=== PATIENT | female | born 1995 | race African-American/Black ===

== ENCOUNTER 2016-12-27 23:09 | Emergency (ER) | payer OTHER ==
[~2016-12-27] VITALS: Ht 167.6 cm; Wt 78.0 kg
[~2016-12-27 23:09] MED LIST: HUMALOG SQ; LEVEMIR SQ; METF500T PO; PROC25SU22 RECTAL
[2016-12-27 23:11] VITALS: BP 130/76; PULSE 73; RESP 16; TEMP 98.1; O2SAT 98
[2016-12-27] MEDS ORDERED: NAPROXEN 250 MG TAB PO ONE (23:45)
--- NOTE | 2016-12-27 23:45 | PD ---
HPI Chief Complaint: Chest Pain Time Seen by Provider: 23:31 Travel History International Travel<30 days: No Contact w/Intl Traveler<30days: No Traveled to known affect area: No History of Present Illness HPI 21yo F with PMH of DM presents to the ED with c/o right sided chest pain since last night. Pain is more to the right of the sternum and sharp. Intermittent and nonradiating. Worst when you press on it. Denies any fever, sob, cough, n/ v, abdominal pain, focal weakness or numbness. Pt was here for atypical chest pain in 2014. Denies any history of PE, hormonal use, family history of sudden cardiac , smoking cig or cocaine use. PFSH Past Medical History ADD: Yes (PLUS PDD (PERVASIVE DEVOLOPMENT DISORDER)) ADHD: Yes Blood Disorders: No Cancer: No Cardiovascular Problems: No Diabetes: Yes Diminished Hearing: No Endocrine: No Genitourinary: No Immune Disorder: No Musculoskeletal: No Neurologic: Yes (PERVASIVE DEVELOPMENTAL DELAY, AUTISTIC) Psychiatric: No Reproductive: No Respiratory: No Thyroid Disease: No : 0 Social History Alcohol Use: No Tobacco Use: No Substance Use: No Allergies-Medications (Allergen,Severity, Reaction): Coded Allergies: Motrin (Verified Allergy, Severe, HIVES AND 'SUFFOCATION', 07/05/16) Lactulose (Verified Allergy, Unknown, "LACTOSE INTOLERANCE", 07/05/16) Reported Meds & Prescriptions Reported Meds & Active Scripts Active Naproxen 250 Mg Tab 250 Mg PO BID 5 Days Prochlorperazine Supp (Prochlorperazine) 25 Mg Supp 25 Mg RECTAL Q6H PRN Reported Levemir Inj (Insulin Detemir) 1,000 unit/ 10 ML Vial 10 Units SQ HS Do not mix with any other Insulin. Metformin (Metformin HCl) 500 Mg Tab 500 Mg PO DAILY With a meal Humalog Inj (Insulin Human Lispro) 1,000 Unit/10 Ml Vial 2-12 Units SQ ACHS Max dose at bedtime:( )units; sugars < 70,(0)units; sugars 150-199,(2)units; sugars 200-249,(4)units; sugars 250-299,(7)units; sugars 300-349,(10)units; sugars more than 349,(12)units. Review of Systems Except as stated in HPI: all other systems reviewed are Neg Physical Exam Narrative GEN: 21yo F not in distress. SKIN: Warm and dry. HEAD: Normocephalic, atraumatic. CV: S1, S2 Chest wall: +TTP right of sternum. No rash. LUNGS: CTA b/l, equal breath sounds. ABD: soft, NT/ND EXT: No lower ext edema. Data Data Last Documented VS Vital Signs Date Time Temp Pulse Resp B/P Pulse Ox O2 Delivery O2 Flow Rate FiO2 12/27/16 23:11 98.1 73 16 130/76 98 Room Air Orders Electrocardiogram (12/27/16 23:39) Basic Metabolic Panel (Bmp) (12/27/16 23:39) Ckmb (Isoenzyme) Profile (12/27/16 23:39) Complete Blood Count With Diff (12/27/16 23:39) Magnesium (Mg) (12/27/16 23:39) Prothrombin Time / Inr (Pt) (12/27/16 23:39) Act Partial Throm Time (Ptt) (12/27/16 23:39) Troponin I (12/27/16 23:39) Chest, Single Ap (12/27/16 23:39) Ecg Monitoring (12/27/16 23:39) Oximetry (12/27/16 23:39) Naproxen (Naprosyn) (12/27/16 23:45) CKMB (12/27/16 00:15) CKMB% (12/27/16 00:15) Labs Laboratory Tests Test 12/27/16 00:15 White Blood Count 7.1 TH/MM3 Red Blood Count 3.91 MIL/MM3 Hemoglobin 10.8 GM/DL Hematocrit 33.3 % Mean Corpuscular Volume 85.4 FL Mean Corpuscular Hemoglobin 27.7 PG Mean Corpuscular Hemoglobin 32.4 % Concent Red Cell Distribution Width 14.9 % Platelet Count 242 TH/MM3 Mean Platelet Volume 8.4 FL Neutrophils (%) (Auto) 47.5 % Lymphocytes (%) (Auto) 42.5 % Monocytes (%) (Auto) 7.9 % Eosinophils (%) (Auto) 1.7 % Basophils (%) (Auto) 0.4 % Neutrophils # (Auto) 3.4 TH/MM3 Lymphocytes # (Auto) 3.0 TH/MM3 Monocytes # (Auto) 0.6 TH/MM3 Eosinophils # (Auto) 0.1 TH/MM3 Basophils # (Auto) 0.0 TH/MM3 CBC Comment DIFF FINAL Differential Comment Prothrombin Time 10.2 SEC Prothromb Time International 0.9 RATIO Ratio Activated Partial 28.5 SEC Thromboplast Time Sodium Level 141 MEQ/L Potassium Level 3.8 MEQ/L Chloride Level 105 MEQ/L Carbon Dioxide Level 29.4 MEQ/L Anion Gap 7 MEQ/L Blood Urea Nitrogen 17 MG/DL Creatinine 0.74 MG/DL Estimat Glomerular Filtration 118 ML/MIN Rate Random Glucose 97 MG/DL Calcium Level 8.5 MG/DL Magnesium Level 1.7 MG/DL Total Creatine Kinase 201 U/L Creatine Kinase MB 1.9 NG/ML Creatine Kinase MB % 0.9 % Troponin I 0.02 NG/ML MDM Medical Decision Making Medical Screen Exam Complete: Yes Emergency Medical Condition: Yes Interpretation(s) EKG: Sinus bradycardia at 57bpm. Normal axis. No ST segment elevation or depression. Differential Diagnosis Costochondritis vs. musculoskeletal pain vs. GERD vs. ACS vs. pericarditis vs. Pneumonia vs. PTX Narrative Course 21yo F with very atypical right sided chest pain that is reproducible to touch. However, pt is obese and has diabetes so will do cardiac work up and obtain labs, EKG, and CXR. Pt has taken naprosyn before and states that even though she is allergic to motrin, she can take naprosyn. Pt was given acetaminophen by mother but did not help with pain. Will give naprosyn and reevaluate. Labs reviewed, no leukocytosis. H/H is low at 10.8/33.3 which is slightly lower than her baseline. Denies any blood in stool or bleeding. Troponin negative. CXR negative. Pt reevaluated at bedside after naprosyn and states pain has improved. Do not feel chest pain is cardiac. Pt instructed to follow up with PMD. Return precautions given. Diagnosis Primary Impression: Atypical chest pain Patient Instructions: General Instructions Departure Forms: Tests/Procedures Additional Instructions: Please follow up with your PMD in 1-2 days. Hemoglobin is 10.8. Please follow up with primary care physician for anemia work up. Return to the ED if symptoms worsen. Med/Other Pt SpecificInfo: Prescription(s) given Scripts Naproxen 250 Mg Wal174 Mg PO BID 5 Days Ref 0 Prov:Coby Galeana DO 12/28/16 Disposition: 01 DISCHARGE HOME Condition: Stable Coby Galeana DO Dec 27, 2016 23:45
--- NOTE | 2016-12-28 00:01 | RADRPT ---
EXAM DATE/TIME: 12/27/2016 23:36 [facility] COMPARISON: CHEST PA & LAT, March 17, 2015, 22:07. INDICATIONS : Pt having chest pain with nausea x 1 day. MEDICAL HISTORY : Diabetes mellitus type II. SURGICAL HISTORY : None. ENCOUNTER: Initial ACUITY: 1 day PAIN SCORE: 6/10 LOCATION: Bilateral chest FINDINGS: The lungs are clear without infiltrate, nodule, or mass. There is no appreciable pleural effusion fo r technique. Heart and mediastinum are unremarkable. CONCLUSION: No acute cardiopulmonary disease. Eleni Lima MD on December 27, 2016 at 23:59 Board Certified Radiologist. This report was verified electronically.
[2016-12-28 00:38] LABS: AUTOMATED NEUTROPHIL # 3.4 TH/MM3 (1.8-7.7); BASOPHIL % 0.4 % (0.0-2.0); EOSINOPHIL # 0.1 TH/MM3 (0-0.4); EOSINOPHIL % 1.7 % (0.0-4.0); HEMATOCRIT 33.3 % (35.0-46.0); HEMO FLAGS DIFF FINAL; LYMPH % 42.5 % (9.0-44.0); MEAN CELL VOLUME 85.4 FL (80.0-100.0); MEAN CORPUSCULAR HEMOGLOBIN 27.7 PG (27.0-34.0); MEAN CORPUSCULAR HGB CONC 32.4 % (32.0-36.0); MONO % 7.9 % (0.0-8.0); NEUT % 47.5 % (16.0-70.0); PLATELET COUNT 242 TH/MM3 (150-450); RED BLOOD COUNT 3.91 MIL/MM3 (4.00-5.30); RED CELL DISTRIBUTION WIDTH 14.9 % (11.6-17.2); WHITE BLOOD COUNT 7.1 TH/MM3 (4.0-11.0)
[2016-12-28 00:51] LABS: APTT (PATIENT) 28.5 SEC (24.3-30.1); INTERNATIONAL NORMALIZED RATIO 0.9 RATIO; PROTHROMBIN TIME - PATIENT 10.2 SEC (9.8-11.6)
[2016-12-28] MEDS ORDERED: NAPR250T PO (00:52)
[2016-12-28 00:57] LABS: BICARBONATE 29.4 MEQ/L (21.0-32.0); MAGNESIUM 1.7 MG/DL (1.5-2.5); POTASSIUM 3.8 MEQ/L (3.5-5.1)
[2016-12-28 01:14] LABS: CKMB 1.9 NG/ML (0.5-3.6)
--- NOTE | 2016-12-28 13:48 | EKG ---
Date Performed: 12/27/2016 Time Performed: 23:55:27 PTAGE: 21 years EKG: SINUS BRADYCARDIA Compared to prior tracing no significant change BORDERLINE ECG PREVIOUS TRACING : 03/17/2015 22.14 DOCTOR: Corky Torres Interpretating Date/Time 12/28/2016 13:48:04
== END 2016-12-28 01:38 | disposition home or self-care (01) ==
LOC: NEPD 23:09
DX: R07.89 Other chest pain (principal); E11.9 Type 2 diabetes mellitus without complications; R94.31 Abnormal electrocardiogram [ECG] [EKG]
CPT/HCPCS: 71010; 80048; 82550; 82552; 83735; 84484; 85025; 85610; 85730; 93005

== ENCOUNTER 2017-01-21 14:15 | Emergency (ER) | payer OTHER ==
[~2017-01-21] VITALS: Ht 170.2 cm; Wt 70.0 kg
[~2017-01-21 14:15] MED LIST changes: +NAPR250T PO
[2017-01-21 14:17] VITALS: BP 139/97; PULSE 92; RESP 15; TEMP 98.3; O2SAT 98
--- NOTE | 2017-01-21 14:21 | PD ---
Physical Exam Date Seen by Provider: Jan 21, 2017 Time Seen by Provider: 14:18 MDM Supervised Visit with LEONOR: No Narrative Course 21 YO F with complaint of CP, SOB, N/V. Hx DM Vitals reviewed. Patient seen in triage, awaiting bed placement. Breonna Perez Jan 21, 2017 14:21
[2017-01-21] MEDS ORDERED: SODIUM CHLOR 0.9% 1000 ML INJ 1,000 ML IV SCH (16:27)
[2017-01-21] MEDS ORDERED: ONDANSETRON HCL 4 MG/2 ML VIAL IVP ONE (16:30)
[2017-01-21] MEDS ORDERED: PANTOPRAZOLE SODIUM 40 MG VIAL IVP ONE (16:30)
--- NOTE | 2017-01-21 16:32 | PD ---
HPI Chief Complaint: Respiratory Distress Time Seen by Provider: 16:20 Travel History International Travel<30 days: No Contact w/Intl Traveler<30days: No Traveled to known affect area: No History of Present Illness HPI 21-year-old female presents for evaluation of nausea, vomiting, chest pain. She reports that for lunch she ate a TV dinner as well as a hot pocket. She started to vomit shortly afterwards. She reports a burning sensation in the lower chest which is reproduced with vomiting. She reports some mild associated shortness of breath. Denies any abdominal pain, diarrhea, leg swelling, recent travel or surgery, history of DVT or PE. She has a history of diabetes for which she takes metformin, insulin. Last menstrual period 9 days ago. No other complaints. PFSH Past Medical History ADD: Yes (PLUS PDD (PERVASIVE DEVOLOPMENT DISORDER)) ADHD: Yes Blood Disorders: No Cancer: No Cardiovascular Problems: No Diabetes: Yes Diminished Hearing: No Endocrine: No Genitourinary: No Immune Disorder: No Musculoskeletal: No Neurologic: Yes (PERVASIVE DEVELOPMENTAL DELAY, AUTISTIC) Psychiatric: No Reproductive: No Respiratory: No Thyroid Disease: No ?: Unknown : 0 Social History Alcohol Use: No Tobacco Use: No Substance Use: No Allergies-Medications (Allergen,Severity, Reaction): Coded Allergies: Motrin (Verified Allergy, Severe, HIVES AND 'SUFFOCATION', 07/05/16) Lactulose (Verified Allergy, Unknown, "LACTOSE INTOLERANCE", 07/05/16) Reported Meds & Prescriptions Reported Meds & Active Scripts Active Zofran (Ondansetron HCl) 4 Mg Tab 4 Mg PO Q6HR PRN Naproxen 250 Mg Tab 250 Mg PO BID 5 Days Prochlorperazine Supp (Prochlorperazine) 25 Mg Supp 25 Mg RECTAL Q6H PRN Reported Levemir Inj (Insulin Detemir) 1,000 unit/ 10 ML Vial 10 Units SQ HS Do not mix with any other Insulin. Metformin (Metformin HCl) 500 Mg Tab 500 Mg PO DAILY With a meal Humalog Inj (Insulin Human Lispro) 1,000 Unit/10 Ml Vial 2-12 Units SQ ACHS Max dose at bedtime:( )units; sugars < 70,(0)units; sugars 150-199,(2)units; sugars 200-249,(4)units; sugars 250-299,(7)units; sugars 300-349,(10)units; sugars more than 349,(12)units. Review of Systems Except as stated in HPI: all other systems reviewed are Neg Physical Exam Narrative GENERAL: Well-developed well-nourished female who is in no acute distress. SKIN: Warm and dry. HEAD: Atraumatic. Normocephalic. EYES: Pupils equal and round. No scleral icterus. No injection or drainage. ENT: No nasal bleeding or discharge. Mucous membranes pink and moist. NECK: Trachea midline. No JVD. CARDIOVASCULAR: Regular rate and rhythm. No murmur appreciated. RESPIRATORY: No accessory muscle use. Clear to auscultation. Breath sounds equal bilaterally. GASTROINTESTINAL: Abdomen soft, non-tender, nondistended. Hepatic and splenic margins not palpable. MUSCULOSKELETAL: No obvious deformities. No clubbing. No cyanosis. No edema. NEUROLOGICAL: Awake and alert. No obvious cranial nerve deficits. Motor grossly within normal limits. Normal speech. PSYCHIATRIC: Appropriate mood and affect; insight and judgment normal. Data Data Last Documented VS Vital Signs Date Time Temp Pulse Resp B/P Pulse Ox O2 Delivery O2 Flow Rate FiO2 01/21/17 14:17 98.3 92 15 139/97 98 Orders Complete Blood Count With Diff (01/21/17 16:27) Comprehensive Metabolic Panel (01/21/17 16:27) Iv Access Insert/Monitor (01/21/17 16:27) Ondansetron Inj (Zofran Inj) (01/21/17 16:30) Pantoprazole Inj (Protonix Inj) (01/21/17 16:30) Sodium Chlor 0.9% 1000 Ml Inj (Ns 1000 M (01/21/17 16:27) Electrocardiogram (01/21/17 16:27) Ed Urine Pregnancytest Poc (01/21/17 16:27) Chest, Single Ap (01/21/17 ) Potassium Chloride (Kcl) (01/21/17 17:15) Labs Laboratory Tests Test 01/21/17 14:30 White Blood Count 5.7 TH/MM3 Red Blood Count 4.28 MIL/MM3 Hemoglobin 12.2 GM/DL Hematocrit 35.9 % Mean Corpuscular Volume 84.0 FL Mean Corpuscular Hemoglobin 28.5 PG Mean Corpuscular Hemoglobin 33.9 % Concent Red Cell Distribution Width 14.4 % Platelet Count 272 TH/MM3 Mean Platelet Volume 8.3 FL Neutrophils (%) (Auto) 41.1 % Lymphocytes (%) (Auto) 50.2 % Monocytes (%) (Auto) 6.9 % Eosinophils (%) (Auto) 1.4 % Basophils (%) (Auto) 0.4 % Neutrophils # (Auto) 2.4 TH/MM3 Lymphocytes # (Auto) 2.9 TH/MM3 Monocytes # (Auto) 0.4 TH/MM3 Eosinophils # (Auto) 0.1 TH/MM3 Basophils # (Auto) 0.0 TH/MM3 CBC Comment DIFF FINAL Differential Comment Sodium Level 139 MEQ/L Potassium Level 3.4 MEQ/L Chloride Level 102 MEQ/L Carbon Dioxide Level 30.4 MEQ/L Anion Gap 7 MEQ/L Blood Urea Nitrogen 10 MG/DL Creatinine 0.82 MG/DL Estimat Glomerular Filtration 105 ML/MIN Rate Random Glucose 76 MG/DL Calcium Level 9.1 MG/DL Total Bilirubin 0.2 MG/DL Aspartate Amino Transf 25 U/L (AST/SGOT) Alanine Aminotransferase 18 U/L (ALT/SGPT) Alkaline Phosphatase 85 U/L Total Protein 8.1 GM/DL Albumin 4.0 GM/DL [facility] Medical Decision Making Medical Screen Exam Complete: Yes Emergency Medical Condition: Yes Medical Record Reviewed: Yes Differential Diagnosis Gastritis, gastroenteritis, DKA, dehydration, electrolyte abnormality, GERD, PE , ACS Narrative Course 21-year-old female who developed some vomiting as well as a burning sensation in her chest when she vomits. Symptoms started shortly after she ate a TV dinner and hot pocket for lunch. On examination she has some reproducible tenderness to palpation in the center of her chest. Her abdomen is soft and nontender. She appears well. Per chart review she has been seen here in the past for atypical chest pain symptoms was recently on December 27 in which she had a negative workup. I suspect her burning chest pain is secondary to vomiting. Ice for basic lab work, EKG, chest x-ray. She'll be given Zofran and fluids and Protonix. The patient's lab work imaging studies have been reviewed. Potassium slightly low at 3.4, otherwise her laboratory and imaging studies are unremarkable. She was given a dose of potassium chloride. She is stable for discharge. Diagnosis Primary Impression: Nausea and vomiting Qualified Code: R11.2 - Non-intractable vomiting with nausea, unspecified vomiting type Additional Instructions: Zofran for nausea. Slowly advance diet as tolerated. Return for any emergent medical conditions. Med/Other Pt SpecificInfo: Prescription(s) given Scripts Ondansetron (Zofran)4 Mg Tab4 Mg PO Q6HR PRN (NAUSEA OR VOMITING) #15 TAB Ref 0 Prov:Kimberly Duran MD 01/21/17 Disposition: 01 DISCHARGE HOME Condition: Stable Olu Salgado Jan 21, 2017 16:32
--- NOTE | 2017-01-21 16:43 | RADRPT ---
EXAM DATE/TIME: 01/21/2017 16:26 [facility] COMPARISON: CHEST SINGLE AP, December 27, 2016, 23:36. INDICATIONS : Chest pain. MEDICAL HISTORY : None. SURGICAL HISTORY : None. ENCOUNTER: Initial ACUITY: 1 week PAIN SCORE: 10/10 LOCATION: middle chest. FINDINGS: A single view of the chest demonstrates the lungs to be symmetrically aerated without evidence of mas s, infiltrate or effusion. The cardiomediastinal contours are unremarkable. Osseous structures are intact. CONCLUSION: 1. No acute cardiopulmonary disease. Javier George MD on January 21, 2017 at 16:40 Board Certified Radiologist. This report was verified electronically.
[2017-01-21 16:48] LABS: AUTOMATED NEUTROPHIL # 2.4 TH/MM3 (1.8-7.7); BASOPHIL % 0.4 % (0.0-2.0); EOSINOPHIL # 0.1 TH/MM3 (0-0.4); EOSINOPHIL % 1.4 % (0.0-4.0); HEMATOCRIT 35.9 % (35.0-46.0); HEMO FLAGS DIFF FINAL; LYMPH % 50.2 % (9.0-44.0); LYMPHOCYTE # 2.9 TH/MM3 (1.0-4.8); MEAN CORPUSCULAR HEMOGLOBIN 28.5 PG (27.0-34.0); MEAN CORPUSCULAR HGB CONC 33.9 % (32.0-36.0); MONO % 6.9 % (0.0-8.0); NEUT % 41.1 % (16.0-70.0); PLATELET COUNT 272 TH/MM3 (150-450); RED BLOOD COUNT 4.28 MIL/MM3 (4.00-5.30); RED CELL DISTRIBUTION WIDTH 14.4 % (11.6-17.2); WHITE BLOOD COUNT 5.7 TH/MM3 (4.0-11.0)
[2017-01-21 17:07] LABS: ALT (GPT) 18 U/L (10-53); ANION GAP 7 MEQ/L (5-15); AST (GOT) 25 U/L (15-37); BICARBONATE 30.4 MEQ/L (21.0-32.0); BLOOD UREA NITROGEN 10 MG/DL (7-18); CHLORIDE 102 MEQ/L (98-107); GLOMERULAR FILTRATION RATE 105 ML/MIN (>89); POTASSIUM 3.4 MEQ/L (3.5-5.1); SODIUM (NA) 139 MEQ/L (136-145)
[2017-01-21 17:09] LABS: ALKALINE PHOSPHATASE 85 U/L (45-117); TOTAL BILIRUBIN ADULT 0.2 MG/DL (0.2-1.0)
[2017-01-21] MEDS ORDERED: ZOFR4TAB PO (17:14)
[2017-01-21] MEDS ORDERED: POTASSIUM CHLORIDE 20 MEQ CONTROLLED RELEASE TAB PO ONE (17:15)
--- NOTE | 2017-01-22 23:33 | EKG ---
Date Performed: 01/21/2017 Time Performed: 16:49:09 PTAGE: 21 years EKG: SINUS BRADYCARDIA WITH SINUS ARRHYTHMIA BORDERLINE ECG PREVIOUS TRACING : 12/27/2016 23.55 Compared to prior tracing no significant change DOCTOR: Merritt Byers Interpretating Date/Time 01/22/2017 23:31:47
== END 2017-01-21 18:57 | disposition home or self-care (01) ==
LOC: NEPD 14:15
DX: R11.2 Nausea with vomiting, unspecified (principal); R94.31 Abnormal electrocardiogram [ECG] [EKG]; E11.9 Type 2 diabetes mellitus without complications; Z79.4 Long term (current) use of insulin
CPT/HCPCS: 71010; 80053; 84703; 85025; 93005; 96361; 96374; 96375; 99285; C9113; J2405; J7030

== ENCOUNTER 2017-01-28 23:35 | Emergency (ER) | payer OTHER ==
[~2017-01-28] VITALS: Ht 170.2 cm; Wt 70.0 kg
[~2017-01-28 23:35] MED LIST changes: +ZOFR4TAB PO
[2017-01-28 23:38] VITALS: BP 116/79; PULSE 81; RESP 18; TEMP 98.8; O2SAT 100
[2017-01-29] MEDS ORDERED: TRAM50TA PO (00:17)
[2017-01-29 00:20] VITALS: BP 119/70; PULSE 79; O2SAT 99
--- NOTE | 2017-01-29 00:39 | PD ---
HPI Chief Complaint: Abdominal Pain Time Seen by Provider: 00:39 Travel History International Travel<30 days: No Contact w/Intl Traveler<30days: No Traveled to known affect area: No History of Present Illness HPI 21-year-old female with history of developmental delay, autistic spectrum disorder, diabetes, presents to emergency department for evaluation of nausea and vomiting. Patient was seen and evaluated here on January 21 for similar complaint. Lab work at that time was without acute concern. Mom states that the patient's blood glucose has been normal. She has been taking her antiemetics but states it has not helped. She has had for 5 episodes of nausea followed by vomiting. Mom states this started on 2 PM today. Patient has been afebrile. She does report abdominal pain. No bowel changes. No urinary symptoms. Patient has been without any fever. No chest pain or tightness. No difficulty breathing. No other symptoms to report. PFSH Past Medical History ADD: Yes (PLUS PDD (PERVASIVE DEVOLOPMENT DISORDER)) ADHD: Yes Blood Disorders: No Cancer: No Cardiovascular Problems: No Diabetes: Yes Patient Takes Glucophage: Yes Diminished Hearing: No Endocrine: No Genitourinary: No Immune Disorder: No Implanted Vascular Access Dvce: No Musculoskeletal: No Neurologic: Yes (PERVASIVE DEVELOPMENTAL DELAY, AUTISTIC) Psychiatric: No Reproductive: No Respiratory: No Thyroid Disease: No Tetanus Vaccination: > 5 Years Influenza Vaccination: Yes ?: Unknown LMP: 01/15/17 : 0 Past Surgical History Other Surgery: No Social History Alcohol Use: Yes (OCC) Tobacco Use: No Substance Use: No Allergies-Medications (Allergen,Severity, Reaction): Coded Allergies: Motrin (Verified Allergy, Severe, HIVES AND 'SUFFOCATION', 07/05/16) Lactulose (Verified Allergy, Unknown, "LACTOSE INTOLERANCE", 07/05/16) Reported Meds & Prescriptions Reported Meds & Active Scripts Active Reported Tramadol (Tramadol HCl) 50 Mg Tab 50 Mg PO Q12HR PRN Metformin (Metformin HCl) 500 Mg Tab 500 Mg PO BID With a meal Humalog Inj (Insulin Human Lispro) 1,000 Unit/10 Ml Vial 2-12 Units SQ ACHS Max dose at bedtime:( )units; sugars < 70,(0)units; sugars 150-199,(2)units; sugars 200-249,(4)units; sugars 250-299,(7)units; sugars 300-349,(10)units; sugars more than 349,(12)units. Review of Systems Except as stated in HPI: all other systems reviewed are Neg Physical Exam Narrative GENERAL: Well-nourished female patient, in no acute distress SKIN: Focused skin assessment warm/dry. HEAD: Atraumatic. Normocephalic. EYES: Pupils equal and round. No scleral icterus. No injection or drainage. ENT: No nasal bleeding or discharge. Mucous membranes pink and moist. NECK: Trachea midline. No JVD. CARDIOVASCULAR: Regular rate and rhythm. No murmur appreciated. RESPIRATORY: No accessory muscle use. Clear to auscultation. Breath sounds equal bilaterally. GASTROINTESTINAL: Abdomen soft, nondistended. Right upper quadrant tenderness to palpation. No rebound tenderness. No guarding. MUSCULOSKELETAL: No obvious deformities. No clubbing. No cyanosis. No edema. NEUROLOGICAL: Awake and alert. No obvious cranial nerve deficits. Motor grossly within normal limits. Normal speech. Data Data Last Documented VS Vital Signs Date Time Temp Pulse Resp B/P Pulse Ox O2 Delivery O2 Flow Rate FiO2 01/29/17 00:20 79 119/70 99 Room Air 01/28/17 23:38 98.8 18 Orders Complete Blood Count With Diff (01/29/17 00:32) Comprehensive Metabolic Panel (01/29/17 00:32) Lipase (01/29/17 00:32) Urinalysis - C+S If Indicated (01/29/17 00:32) Us Abdomen Gallbladder (01/29/17 ) Iv Access Insert/Monitor (01/29/17 00:32) Ecg Monitoring (01/29/17 00:32) Oximetry (01/29/17 00:32) Sodium Chloride 0.9% Flush (Ns Flush) (01/29/17 00:45) Ed Urine Pregnancytest Poc (01/29/17 00:32) MDM Medical Decision Making Medical Screen Exam Complete: Yes Emergency Medical Condition: Yes Medical Record Reviewed: Yes Differential Diagnosis Gastritis versus gastroparesis versus gastroenteritis versus pancreatitis versus cholecystitis versus cholelithiasis versus electrolyte abnormality Narrative Course 21-year-old female presents to emergency department for evaluation of nausea and vomiting. Patient appears without distress. She does have right upper quadrant tenderness to palpation. Vital signs are otherwise stable. Lab work and right upper quadrant ultrasound are ordered. 0100 patient is signed out to my attending physician Dr. Lao. She will assume care at this time. Disposition will pend her judgment. Condition: Stable Shannon Sommer Jan 29, 2017 00:39
[2017-01-29 00:41] VITALS: O2SAT 99
[2017-01-29] MEDS ORDERED: ONDANSETRON HCL 4 MG/2 ML VIAL IV PUSH ONE (00:45)
[2017-01-29] MEDS ORDERED: SODIUM CHLORIDE 0.9% FLUSH 10 ML FLUSH IV FLUSH PRN (00:45)
[2017-01-29] MEDS ORDERED: SODIUM CHLOR 0.9% 1000 ML INJ 1,000 ML IV ONE (00:45)
[2017-01-29 00:54] LABS: AUTOMATED NEUTROPHIL # 2.5 TH/MM3 (1.8-7.7); BASOPHIL % 0.3 % (0.0-2.0); EOSINOPHIL # 0.1 TH/MM3 (0-0.4); EOSINOPHIL % 1.6 % (0.0-4.0); HEMATOCRIT 33.4 % (35.0-46.0); HEMO FLAGS DIFF FINAL; LYMPH % 51.2 % (9.0-44.0); LYMPHOCYTE # 3.2 TH/MM3 (1.0-4.8); MEAN CELL VOLUME 83.7 FL (80.0-100.0); MEAN CORPUSCULAR HEMOGLOBIN 28.1 PG (27.0-34.0); MEAN CORPUSCULAR HGB CONC 33.6 % (32.0-36.0); MONO % 6.2 % (0.0-8.0); NEUT % 40.7 % (16.0-70.0); PLATELET COUNT 257 TH/MM3 (150-450); RED BLOOD COUNT 3.99 MIL/MM3 (4.00-5.30); RED CELL DISTRIBUTION WIDTH 14.7 % (11.6-17.2); WHITE BLOOD COUNT 6.2 TH/MM3 (4.0-11.0)
--- NOTE | 2017-01-29 01:01 | PD ---
Data Data Last Documented VS Vital Signs Date Time Temp Pulse Resp B/P Pulse Ox O2 Delivery O2 Flow Rate FiO2 01/29/17 00:41 99 Room Air 01/29/17 00:20 79 119/70 01/28/17 23:38 98.8 18 Orders Complete Blood Count With Diff (01/29/17 00:32) Comprehensive Metabolic Panel (01/29/17 00:32) Lipase (01/29/17 00:32) Urinalysis - C+S If Indicated (01/29/17 00:32) Us Abdomen Gallbladder (01/29/17 ) Iv Access Insert/Monitor (01/29/17 00:32) Ecg Monitoring (01/29/17 00:32) Oximetry (01/29/17 00:32) Sodium Chloride 0.9% Flush (Ns Flush) (01/29/17 00:45) Ed Urine Pregnancytest Poc (01/29/17 00:32) Ondansetron Inj (Zofran Inj) (01/29/17 00:45) Sodium Chlor 0.9% 1000 Ml Inj (Ns 1000 M (01/29/17 00:45) Urine Culture (01/29/17 01:52) Ceftriaxone Inj (Rocephin Inj) (01/29/17 03:30) Labs Laboratory Tests Test 01/29/17 01/29/17 00:39 01:52 White Blood Count 6.2 TH/MM3 Red Blood Count 3.99 MIL/MM3 Hemoglobin 11.2 GM/DL Hematocrit 33.4 % Mean Corpuscular Volume 83.7 FL Mean Corpuscular Hemoglobin 28.1 PG Mean Corpuscular Hemoglobin 33.6 % Concent Red Cell Distribution Width 14.7 % Platelet Count 257 TH/MM3 Mean Platelet Volume 8.8 FL Neutrophils (%) (Auto) 40.7 % Lymphocytes (%) (Auto) 51.2 % Monocytes (%) (Auto) 6.2 % Eosinophils (%) (Auto) 1.6 % Basophils (%) (Auto) 0.3 % Neutrophils # (Auto) 2.5 TH/MM3 Lymphocytes # (Auto) 3.2 TH/MM3 Monocytes # (Auto) 0.4 TH/MM3 Eosinophils # (Auto) 0.1 TH/MM3 Basophils # (Auto) 0.0 TH/MM3 CBC Comment DIFF FINAL Differential Comment Sodium Level 138 MEQ/L Potassium Level 3.9 MEQ/L Chloride Level 105 MEQ/L Carbon Dioxide Level 27.1 MEQ/L Anion Gap 6 MEQ/L Blood Urea Nitrogen 11 MG/DL Creatinine 0.83 MG/DL Estimat Glomerular Filtration 103 ML/MIN Rate Random Glucose 80 MG/DL Calcium Level 8.8 MG/DL Total Bilirubin 0.2 MG/DL Aspartate Amino Transf 40 U/L (AST/SGOT) Alanine Aminotransferase 21 U/L (ALT/SGPT) Alkaline Phosphatase 82 U/L Total Protein 7.5 GM/DL Albumin 3.6 GM/DL Lipase 162 U/L Urine Color YELLOW Urine Turbidity CLEAR Urine pH 6.0 Urine Specific [place] 1.022 Urine Protein TRACE mg/dL Urine Glucose (UA) NEG mg/dL Urine Ketones NEG mg/dL Urine Occult Blood NEG Urine Nitrite NEG Urine Bilirubin NEG Urine Urobilinogen 2.0 MG/DL Urine Leukocyte Esterase LARGE Urine RBC 9 /hpf Urine WBC 27 /hpf Urine Squamous Epithelial 2 /hpf Cells Urine Mucus FEW /lpf Microscopic Urinalysis Comment CULTURE INDICATED MDM Medical Record Reviewed: Yes Supervised Visit with LEONOR: No Interpretation(s) Last Impressions Gall Bladder Ultrasound 01/29/17 0000 Signed Impressions: Service Date/Time: Sunday, January 29, 2017 02:46 - CONCLUSION: 1. Enlarged echogenic liver which can be seen with moderate hepatic steatosis. 2. No evidence for cholelithiasis. Reggie Conde MD Narrative Course During the course of the patients emergency department visit, the patients history, examination, and differential diagnosis were reviewed with the patient. The patient had IV access obtained and blood work sent for analysis. The patient's case was checked out to me by Shannon, the nurse practitioner at the conclusion of her shift. An ultrasound of the gallbladder was ordered by Shannon. The patient was initially provided normal saline 1 L IV fluid bolus, Zofran 4 mg IV. The patients laboratory studies were reviewed and remarkable for a CBC that shows a white count of 2, hemoglobin 11.2, platelets 257 with 51.2 lymphocytes, CMP is remarkable for an AST of 40, lipase 162, urinalysis shows large leukocyte esterase, 9 rbc's, 27 WBCs, culture indicated. The patient was given Rocephin 1 g IV for a urinary tract infection. Radiology studies were reviewed and remarkable for an ultrasound of the gallbladder which shows an enlarged echogenic liver which can be seen with moderate hepatic steatosis, no evidence for cholelithiasis. The patient will be discharged home with Bactrim antibiotic for urinary tract infection, Zofran for nausea. She was instructed to follow-up with her primary care physician for reexamination in follow-up in the next 2 days. The patient is resting comfortably and feels better, is alert and in no distress. The patients results and examination findings were discussed with the patient. The repeat examination is unremarkable and benign. The history, exam, diagnostic testing, and current condition do not suggest any significant pathology to warrant further testing, continued ED treatment, admission, or surgical evaluation at this point. The vital signs have been stable. The patient does not have uncontrollable pain, intractable vomiting, or other significant symptoms. The patient's condition is stable and appropriate for discharge. The patient will pursue further outpatient evaluation with a primary care physician or other designated or consulting physician as indicated in the discharge instructions. The patient expressed understanding and was agreeable with this plan. Diagnosis Primary Impression: Abdominal pain Qualified Code: R10.13 - Epigastric pain Additional Impressions: Vomiting Qualified Code: R11.2 - Non-intractable vomiting with nausea, unspecified vomiting type UTI (urinary tract infection) Qualified Code: N39.0 - Urinary tract infection without hematuria, site unspecified Referrals: Primary Care Physician 2 days Patient Instructions: Abdominal Pain (ED), Acute Nausea and Vomiting (ED), General Instructions, Urinary Tract Infection in Women (ED) Med/Other Pt SpecificInfo: Prescription(s) given Scripts Ondansetron Odt (Zofran Odt)4 Mg Tab4 Mg SL Q6HR PRN (Nausea/Vomiting) #7 TAB Ref 0 Prov:Arlen Lao MD 01/29/17 Sulfamethoxazole-Trimethoprim (Bactrim DS)800-160 Mg Tab1 Tab PO BID #20 TAB Ref 0 Prov:Arlen Lao MD 01/29/17 Disposition: 01 DISCHARGE HOME Condition: Stable Arlen Lao MD Jan 29, 2017 01:00
[2017-01-29 01:04] LABS: ANION GAP 6 MEQ/L (5-15); AST (GOT) 40 U/L (15-37); BICARBONATE 27.1 MEQ/L (21.0-32.0); BLOOD UREA NITROGEN 11 MG/DL (7-18); CHLORIDE 105 MEQ/L (98-107); GLOMERULAR FILTRATION RATE 103 ML/MIN (>89); POTASSIUM 3.9 MEQ/L (3.5-5.1); SODIUM (NA) 138 MEQ/L (136-145)
[2017-01-29 01:07] LABS: ALKALINE PHOSPHATASE 82 U/L (45-117); ALT (GPT) 21 U/L (10-53); TOTAL BILIRUBIN ADULT 0.2 MG/DL (0.2-1.0)
[2017-01-29 02:27] LABS: BLOOD, URINE NEG (NEG); COMMENT (UR) CULTURE INDICATED; CULTURE IF INDICATED CULTURE INDICATED; GLUCOSE,URINE NEG (NEG); KETONE, URINE NEG (NEG); MUCUS URINE FEW /lpf (OCC); NITRITE,URINE NEG (NEG); SQUAMOUS EPITHELIAL CELL URINE 2 /hpf (0-5); URINE COLOR YELLOW (YELLW/STRAW)
[2017-01-29] MEDS ORDERED: ZOFR4TAB3 SL (03:25)
[2017-01-29] MEDS ORDERED: BACT800T5 PO (03:25)
[2017-01-29] MEDS ORDERED: cefTRIAXone INJ 2,000 MG in SODIUM CHLORIDE 0.9% INJ 100 ML IV ONE (03:30)
--- NOTE | 2017-01-29 03:35 | RADRPT ---
EXAM DATE/TIME: 01/29/2017 02:46 [facility] COMPARISON: No previous studies available for comparison. INDICATIONS : Right upper quadrant pain. MEDICAL HISTORY : Pervasive developmental delay. Autism. ADHD. Diabetes. SURGICAL HISTORY : None. ENCOUNTER: Initial ACUITY: 1 day PAIN SCORE: 4/10 LOCATION: Right upper quadrant MEASUREMENTS: LIVER: 17.2 cm length COMMON DUCT: 4 mm RIGHT KIDNEY: 11.4 x 6.2 x 6.1 cm FINDINGS: LIVER: Enlarged and echogenic without focal lesion or ductal dilatation. Hepatopedal flow. COMMON DUCT: No intraluminal mass or stone visualized. GALLBLADDER: Contains no stones, demonstrates no wall thickening or pericholecystic fluid. PANCREAS: The visualized portions are within normal limits. RIGHT KIDNEY: No evidence of hydronephrosis, stone, or mass. CONCLUSION: 1. Enlarged echogenic liver which can be seen with moderate hepatic steatosis. 2. No evidence for cholelithiasis. Reggie Conde MD on January 29, 2017 at 3:31 Board Certified Radiologist. This report was verified electronically.
== END 2017-01-29 04:18 | disposition home or self-care (01) ==
LOC: NEPE 23:35
DX: N39.0 Urinary tract infection, site not specified (principal); E11.9 Type 2 diabetes mellitus without complications; Z79.4 Long term (current) use of insulin; R16.0 Hepatomegaly, not elsewhere classified; F90.9 Attention-deficit hyperactivity disorder, unspecified type; R11.2 Nausea with vomiting, unspecified; B96.29 Other Escherichia coli [E. coli] as the cause of diseases classified elsewhere
CPT/HCPCS: 76705; 80053; 81001; 83690; 84703; 85025; 87086; 96361; 96374; 96375; 99285; J0696; J2405; J7030

== ENCOUNTER 2017-02-06 22:09 | Emergency (ER) | payer OTHER ==
[~2017-02-06 22:09] MED LIST changes: +BACT800T5 PO; -LEVEMIR SQ; -NAPR250T PO; -PROC25SU22 RECTAL; +TRAM50TA PO; -ZOFR4TAB PO; +ZOFR4TAB3 SL
[2017-02-06 22:13] VITALS: BP 131/74; PULSE 86; RESP 16; TEMP 98.5; O2SAT 100
== END 2017-02-07 00:20 | disposition left against medical advice (07) ==
LOC: NED 22:09
DX: R51 Headache (principal); Z53.21 Procedure and treatment not carried out due to patient leaving prior to being seen by health care provider
CPT/HCPCS: 99281

== ENCOUNTER 2017-06-02 18:38 | Emergency (ER) | payer OTHER ==
[2017-06-02 18:39] VITALS: BP 125/77; PULSE 82; RESP 16; TEMP 97.8; O2SAT 98
--- NOTE | 2017-06-02 19:43 | PD ---
HPI Chief Complaint: Musculoskeletal Complaint Time Seen by Provider: 19:39 Travel History International Travel<30 days: No Contact w/Intl Traveler<30days: No Traveled to known affect area: No History of Present Illness HPI Patient comes in complaining of right-sided back left-sided neck pain that began around 1:00 PM today after she fell backwards while sitting in a rolling chair. Patient reports hitting her head but denies any loss of consciousness. Patient denies doing anything for this prior to coming to the emergency department. Denies anything making it better or worse. Denies any radiation of the pain. Describes pain as soreness like in nature. Denies any chest pain, shortness of breath, change in vision, weakness, numbness or tingling anywhere, loss or change in bowel or bladder, being on any blood thinners, or . Patient reports she is a diabetic and blood sugars are well-controlled. PFSH Past Medical History ADD: Yes (PLUS PDD (PERVASIVE DEVOLOPMENT DISORDER)) ADHD: Yes Blood Disorders: No Cancer: No Cardiovascular Problems: No Diabetes: Yes Patient Takes Glucophage: Yes Diminished Hearing: No Endocrine: No Gastrointestinal Disorders: No Genitourinary: No Immune Disorder: No Implanted Vascular Access Dvce: No Musculoskeletal: No Neurologic: Yes (PERVASIVE DEVELOPMENTAL DELAY, AUTISTIC) Psychiatric: No Reproductive: No Respiratory: No Immunizations Current: Yes Thyroid Disease: No Tetanus Vaccination: > 5 Years Influenza Vaccination: Yes ?: Unknown : 0 Past Surgical History Other Surgery: No Social History Alcohol Use: Yes (OCC) Tobacco Use: No Substance Use: No Allergies-Medications (Allergen,Severity, Reaction): Coded Allergies: ibuprofen (Unverified Allergy, Severe, HIVES AND 'SUFFOCATION', 06/02/17) lactulose (Unverified Allergy, Unknown, "LACTOSE INTOLERANCE", 06/02/17) Reported Meds & Prescriptions Reported Meds & Active Scripts Active Flexeril (Cyclobenzaprine HCl) 10 Mg Tab 10 Mg PO Q8HR PRN Zofran Odt (Ondansetron Odt) 4 Mg Tab 4 Mg SL Q6HR PRN Bactrim DS (Sulfamethoxazole-Trimethoprim) 800-160 Mg Tab 1 Tab PO BID Reported Tramadol (Tramadol HCl) 50 Mg Tab 50 Mg PO Q12HR PRN Metformin (Metformin HCl) 500 Mg Tab 500 Mg PO BID With a meal Humalog Inj (Insulin Human Lispro) 1,000 Unit/10 Ml Vial 2-12 Units SQ ACHS Max dose at bedtime:( )units; sugars < 70,(0)units; sugars 150-199,(2)units; sugars 200-249,(4)units; sugars 250-299,(7)units; sugars 300-349,(10)units; sugars more than 349,(12)units. Review of Systems Except as stated in HPI: all other systems reviewed are Neg Physical Exam Narrative GENERAL: Well-developed, overly nourished, in no acute distress, and non-ill appearing. SKIN: Focused skin assessment warm and dry. HEAD: Atraumatic. Normocephalic. EYES: Pupils equal and round. EOMI. No scleral icterus. No injection or drainage. ENT: No nasal bleeding or discharge. Mucous membranes pink and moist. NECK: Trachea midline. Supple. No nuclear rigidity. CARDIOVASCULAR: Regular rate and rhythm. No murmur appreciated. RESPIRATORY: No accessory muscle use. No respiratory distress. Clear to auscultation. Breath sounds equal bilaterally. GASTROINTESTINAL: Abdomen soft, non-tender, nondistended, and no guarding. Hepatic and splenic margins not palpable. Normal bowel sounds 4. No pulsatile mass. MUSCULOSKELETAL: No obvious deformities. No clubbing. No cyanosis. No edema. Full range of motion. No tenderness or crepitus throughout spinal column. Patient reports patient right lateral lower thoracic muscles and left trapezius muscle.Shoulder:FROM equal BL with passive flexion, extension, Abduction, Adduction, internal/external rotation, and pronation/supination. Sensation equal BL deltoid muscles. Pulses equal BL distal to injury. Capillary refill less than 2 seconds distal to injury and equal BL. FROM distal to injury and equal BL. Strength distal to injury equal BL. NV intact distal to injury equal BL. Flexion and extension of thumb equal BL. Equal strength and movement with abduction/adductions of BL fingers. [place] strength equal BL. Normal gait. NEUROLOGICAL: Awake and alert. No obvious cranial nerve deficits. Motor grossly within normal limits. Normal speech. PSYCHIATRIC: Appropriate mood and affect; insight and judgment normal. Data Data Last Documented VS Vital Signs Date Time Temp Pulse Resp B/P (MAP) Pulse Ox O2 Delivery O2 Flow Rate FiO2 06/02/17 19:53 06/02/17 18:39 97.8 82 16 98 Orders Orders Ondansetron Odt (Zofran Odt) (06/02/17 19:45) Acetaminophen (Tylenol) (06/02/17 19:45) Cyclobenzaprine (Flexeril) (06/02/17 19:45) Ed Discharge Order (06/02/17 19:45) [facility] Medical Decision Making Medical Screen Exam Complete: Yes Emergency Medical Condition: Yes Differential Diagnosis Fracture, strain, contusion, other Narrative Course Patient presents with apparent neck and back strain. There was no clinical evidence to support cranial or intracranial injury. There is no midline spine pain or tenderness and no significant distracting injury to suggest associated spine injury. The patient has no neurological complaints. The patient has been behaving normally and no notable altered mental status. [place] score of 15. The neurologic exam is normal. The patient is awake and aware and motor sensory exams are normal. . There is no saddle paresthesias reported and no bowel or bladder incontinence or retention. Clinical suspicion, plan of care and management was discussed with the patient. The patient was instructed to follow up with their health care provider. The patient was also instructed to return if the pain worsened, changed, or developed weakness or bowel or bladder trouble. The patient agreed with plan. There was no evidence to support genitourinary etiology as well. There is also no evidence to suggest vascular pathology such as AAA dissection. No fevers or other evidence to suspect infectious processes, abscess etc. Patient in no obvious distress upon re-evaluation. Patient was asked if they wanted to speak to my attending, which the patient did not wish to do at this time. Any questions/concerns in reference to patient diagnosis/condition discussed and clarified prior to patient's discharge. Reinforced sheer importance of close follow up with patient's primary physician or primary care clinic. Instructed patient to return to ED immediately, if symptoms return/ worsen. Patient showed understanding of above instructions. Further instructions and recommendations were detailed in discharge paperwork. Patient ambulated without difficulty out of ED at discharge. Diagnosis Primary Impression: Back pain Qualified Codes: M54.9 - Dorsalgia, unspecified Additional Impression: Neck pain Patient Instructions: Acute Neck Pain (ED), Back Pain (ED), General Instructions Additional Instructions: Follow-up with your primary care physician this week for evaluation. Take all medication as prescribed. Use [id number] Tylenol as needed for additional pain control. Follow instructions on the packaging. Return to the emergency department if symptoms get worse. Med/Other Pt SpecificInfo: Prescription(s) given Scripts Cyclobenzaprine (Flexeril) 10 Mg Tab 10 MG PO Q8HR Y for MUSCLE PAIN, #9 TAB 0 Refills Prov: Ortiz Prado MD 06/02/17 Disposition: 01 DISCHARGE HOME Condition: Stable Lencho Senior Jun 02, 2017 19:43
[2017-06-02] MEDS ORDERED: CYCL10TA PO (19:44)
[2017-06-02] MEDS ORDERED: ONDANSETRON ODT 4 MG TAB PO ONE (19:45)
[2017-06-02] MEDS ORDERED: CYCLOBENZAPRINE HCL 10 MG TAB PO ONE (19:45)
[2017-06-02] MEDS ORDERED: ACETAMINOPHEN 500 MG CPLT PO ONE (19:45)
== END 2017-06-02 19:57 | disposition home or self-care (01) ==
LOC: NEPK 18:38
DX: M54.2 Cervicalgia (principal); E11.9 Type 2 diabetes mellitus without complications; Z79.4 Long term (current) use of insulin
CPT/HCPCS: 99283

== ENCOUNTER 2017-07-12 01:12 | Emergency (ER) | payer OTHER ==
[~2017-07-12] VITALS: Ht 175.3 cm; Wt 95.0 kg
[~2017-07-12 01:12] MED LIST changes: +CYCL10TA PO
[2017-07-12 01:13] VITALS: BP 123/84; PULSE 88; RESP 16; TEMP 98.2; O2SAT 100
[2017-07-12 01:38] VITALS: BP 115/83; PULSE 69; RESP 16; O2SAT 100
[2017-07-12] MEDS ORDERED: SODIUM CHLORIDE 0.9% FLUSH 10 ML FLUSH IV FLUSH PRN (02:15)
[2017-07-12] MEDS ORDERED: ONDANSETRON HCL 4 MG/2 ML VIAL IV PUSH ONE (02:15)
[2017-07-12] MEDS ORDERED: SODIUM CHLOR 0.9% 1000 ML INJ 1,000 ML IV ONE (02:15)
[2017-07-12 02:51] LABS: AUTOMATED NEUTROPHIL # 3.1 TH/MM3 (1.8-7.7); BASOPHIL % 0.4 % (0.0-2.0); EOSINOPHIL # 0.1 TH/MM3 (0-0.4); EOSINOPHIL % 1.9 % (0.0-4.0); HEMOGLOBIN 11.3 GM/DL (11.6-15.3); LYMPH % 47.1 % (9.0-44.0); LYMPHOCYTE # 3.4 TH/MM3 (1.0-4.8); MEAN CELL VOLUME 85.1 FL (80.0-100.0); MEAN CORPUSCULAR HEMOGLOBIN 28.3 PG (27.0-34.0); MEAN CORPUSCULAR HGB CONC 33.2 % (32.0-36.0); MONO % 7.4 % (0.0-8.0); MONOCYTE # 0.5 TH/MM3 (0-0.9); NEUT % 43.2 % (16.0-70.0); PLATELET COUNT 296 TH/MM3 (150-450); RED BLOOD COUNT 3.99 MIL/MM3 (4.00-5.30); RED CELL DISTRIBUTION WIDTH 14.6 % (11.6-17.2); WHITE BLOOD COUNT 7.3 TH/MM3 (4.0-11.0)
[2017-07-12 03:06] LABS: ALBUMIN 3.7 GM/DL (3.4-5.0); ALT (GPT) 22 U/L (10-53); AST (GOT) 29 U/L (15-37); BICARBONATE 30.4 MEQ/L (21.0-32.0); BLOOD UREA NITROGEN 14 MG/DL (7-18); CALCIUM 8.8 MG/DL (8.5-10.1); CHLORIDE 107 MEQ/L (98-107); GLOMERULAR FILTRATION RATE 108 ML/MIN (>89); GLUCOSE,RANDOM 75 MG/DL (74-106); LIPASE 143 U/L (73-393); SODIUM (NA) 143 MEQ/L (136-145)
[2017-07-12 03:07] VITALS: O2SAT 100
[2017-07-12 03:09] LABS: ALKALINE PHOSPHATASE 85 U/L (45-117); TOTAL BILIRUBIN ADULT 0.2 MG/DL (0.2-1.0); TOTAL PROTEIN 7.7 GM/DL (6.4-8.2)
--- NOTE | 2017-07-12 04:01 | PD ---
HPI Chief Complaint: Abdominal Pain Time Seen by Provider: 02:09 Travel History International Travel<30 days: No Contact w/Intl Traveler<30days: No Traveled to known affect area: No History of Present Illness HPI 21 year-old female presents to the emergency department with epigastric pain associated with nausea and vomiting. No fever or chills. Symptoms have been present for 6 months. Patient is scheduled to see travel manager. Mother gave Phenergan because she had vomiting after taking medication but he became concerned and brings her now to the emergency room. This particular episode has been present for greater than 12 hours. Unable to identify exacerbating or alleviating factors. Pain is 6/10 intensity. Patient with developmental delay and mother at bedside to provide assistance with history. [facility] Past Medical History Narrative Medical ADD ADHD developmental delay diabetes or tobacco use nursing notes reviewed ADD: Yes (PLUS PDD (PERVASIVE DEVOLOPMENT DISORDER)) ADHD: Yes Blood Disorders: No Cancer: No Cardiovascular Problems: No Diabetes: Yes (type 1 ) Patient Takes Glucophage: No Diminished Hearing: No Endocrine: No Gastrointestinal Disorders: No Genitourinary: No Immune Disorder: No Implanted Vascular Access Dvce: No Musculoskeletal: No Neurologic: Yes (PERVASIVE DEVELOPMENTAL DELAY, AUTISTIC) Psychiatric: No Reproductive: No Respiratory: No Immunizations Current: Yes Thyroid Disease: No ?: Not : 0 Past Surgical History Surgical History: No Previous Surgery Other Surgery: No Social History Alcohol Use: Yes (OCC) Tobacco Use: No Substance Use: No Allergies-Medications (Allergen,Severity, Reaction): Coded Allergies: ibuprofen (Unverified Allergy, Severe, HIVES AND 'SUFFOCATION', 07/12/17) Reported Meds & Prescriptions Reported Meds & Active Scripts Active Zofran Odt (Ondansetron Odt) 4 Mg Tab 4 Mg SL Q6HR PRN Bactrim DS (Sulfamethoxazole-Trimethoprim) 800-160 Mg Tab 1 Tab PO BID Zofran Odt (Ondansetron Odt) 4 Mg Tab 4 Mg SL Q6HR PRN Reported Metformin (Metformin HCl) 500 Mg Tab 500 Mg PO BID With a meal Humalog Inj (Insulin Human Lispro) 1,000 Unit/10 Ml Vial 2-12 Units SQ ACHS Max dose at bedtime:( )units; sugars < 70,(0)units; sugars 150-199,(2)units; sugars 200-249,(4)units; sugars 250-299,(7)units; sugars 300-349,(10)units; sugars more than 349,(12)units. Review of Systems Except as stated in HPI: all other systems reviewed are Neg Physical Exam Narrative GENERAL: Well-developed well-nourished female in no acute distress no respiratory distress SKIN: Warm and dry. HEAD: Normocephalic. EYES: No scleral icterus. No injection or drainage. NECK: Supple, trachea midline. No JVD or lymphadenopathy. CARDIOVASCULAR: Regular rate and rhythm without murmurs, gallops, or rubs. RESPIRATORY: Breath sounds equal bilaterally. No accessory muscle use. GASTROINTESTINAL: Abdomen soft, mild epigastric tenderness to palpation without guarding or rebound, nondistended. MUSCULOSKELETAL: No cyanosis, or edema. BACK: Nontender without obvious deformity. No CVA tenderness. Data Data Last Documented VS Vital Signs Date Time Temp Pulse Resp B/P (MAP) Pulse Ox O2 Delivery O2 Flow Rate FiO2 07/12/17 03:07 100 Room Air 07/12/17 01:38 69 16 07/12/17 01:13 98.2 Orders Orders Complete Blood Count With Diff (07/12/17 02:09) Comprehensive Metabolic Panel (07/12/17 02:09) Lipase (07/12/17 02:09) Urinalysis - C+S If Indicated (07/12/17 02:09) Iv Access Insert/Monitor (07/12/17 02:09) Ecg Monitoring (07/12/17 02:09) Oximetry (07/12/17 02:09) Sodium Chloride 0.9% Flush (Ns Flush) (07/12/17 02:15) Ed Urine Pregnancytest Poc (07/12/17 02:09) Ondansetron Inj (Zofran Inj) (07/12/17 02:15) Sodium Chlor 0.9% 1000 Ml Inj (Ns 1000 M (07/12/17 02:15) Abdomen, Flat & Upright (07/12/17 ) Urine Culture (07/12/17 04:00) Ceftriaxone Inj (Rocephin Inj) (07/12/17 04:45) Labs Laboratory Tests Test 07/12/17 02:15 07/12/17 04:00 White Blood Count 7.3 TH/MM3 Red Blood Count 3.99 MIL/MM3 Hemoglobin 11.3 GM/DL Hematocrit 34.0 % Mean Corpuscular Volume 85.1 FL Mean Corpuscular Hemoglobin 28.3 PG Mean Corpuscular Hemoglobin Concent 33.2 % Red Cell Distribution Width 14.6 % Platelet Count 296 TH/MM3 Mean Platelet Volume 8.0 FL Neutrophils (%) (Auto) 43.2 % Lymphocytes (%) (Auto) 47.1 % Monocytes (%) (Auto) 7.4 % Eosinophils (%) (Auto) 1.9 % Basophils (%) (Auto) 0.4 % Neutrophils # (Auto) 3.1 TH/MM3 Lymphocytes # (Auto) 3.4 TH/MM3 Monocytes # (Auto) 0.5 TH/MM3 Eosinophils # (Auto) 0.1 TH/MM3 Basophils # (Auto) 0.0 TH/MM3 CBC Comment DIFF FINAL Differential Comment Blood Urea Nitrogen 14 MG/DL Creatinine 0.80 MG/DL Random Glucose 75 MG/DL Total Protein 7.7 GM/DL Albumin 3.7 GM/DL Calcium Level 8.8 MG/DL Alkaline Phosphatase 85 U/L Aspartate Amino Transf (AST/SGOT) 29 U/L Alanine Aminotransferase (ALT/SGPT) 22 U/L Total Bilirubin 0.2 MG/DL Sodium Level 143 MEQ/L Potassium Level 3.6 MEQ/L Chloride Level 107 MEQ/L Carbon Dioxide Level 30.4 MEQ/L Anion Gap 6 MEQ/L Estimat Glomerular Filtration Rate 108 ML/MIN Lipase 143 U/L Urine Color YELLOW Urine Turbidity HAZY Urine pH 7.5 Urine Specific [place] 1.030 Urine Protein 30 mg/dL Urine Glucose (UA) NEG mg/dL Urine Ketones NEG mg/dL Urine Occult Blood TRACE Urine Nitrite NEG Urine Bilirubin NEG Urine Urobilinogen 2.0 MG/DL Urine Leukocyte Esterase LARGE Urine RBC 51 /hpf Urine WBC 67 /hpf Urine Squamous Epithelial Cells 7 /hpf Urine Mucus MOD /lpf Microscopic Urinalysis Comment CULTURE INDICATED MDM Medical Decision Making Medical Screen Exam Complete: Yes Emergency Medical Condition: Yes Medical Record Reviewed: Yes Interpretation(s) poc hcg: negative CBC & BMP Diagram 07/12/17 02:15 Total Protein 7.7, Albumin 3.7, Calcium Level 8.8, Alkaline Phosphatase 85, Aspartate Amino Transf (AST/SGOT) 29, Alanine Aminotransferase (ALT/SGPT) 22, Total Bilirubin 0.2 Vital Signs Date Time Temp Pulse Resp B/P (MAP) Pulse Ox O2 Delivery O2 Flow Rate FiO2 07/12/17 03:07 100 Room Air 07/12/17 01:38 69 16 115/83 (94) 100 Room Air 07/12/17 01:13 98.2 88 16 123/84 (97) 100 Room Air Differential Diagnosis Abdominal pain gastritis cholecystitis pancreatitis chronic pain syndrome viral syndrome bowel obstruction pneumonia Narrative Course IV access obtained specimens collected and sent for resulting patient administered Zofran 4 mg IV and 1 L normal saline Patient resting comfortably no nausea or vomiting in the emergency department CBC is automated differential and chemistries found to be in normal range Urinalysis is abnormal positive leukocyte Estrace white blood cells and bacteria cultures indicated [id number] hCG is negative And upright abdomen and pelvis nonspecific bowel gas pattern except patient administered a one-time dose of IV Rocephin and is stable for outpatient management Diagnosis Primary Impression: UTI (urinary tract infection) Additional Impression: Chronic abdominal pain Referrals: Primary Care Physician call for appointment Patient Instructions: General Instructions Additional Instructions: Follow clear liquid diet for next 12-24 hours advance as tolerated to bland/ Huseyin diet and regular diet avoiding fried or fatty foods Complete course of antibiotic as prescribed Take medication as prescribed as needed for nausea and/or vomiting Take acetaminophen/Tylenol as needed for pain or for fever 100.4F or greater Follow-up with your primary care provider and travel manager call office on Friday to schedule follow-up appointment Return to the emergency for for any concerns or change in condition Med/Other Pt SpecificInfo: Prescription(s) given Scripts Ondansetron Odt (Zofran Odt) 4 Mg Tab 4 MG SL Q6HR Y for Nausea/Vomiting, #10 TAB 0 Refills Prov: Tanya Hoskins MD 07/12/17 Sulfamethoxazole-Trimethoprim (Bactrim DS) 800-160 Mg Tab 1 TAB PO BID for Infection, #20 TAB 0 Refills Prov: Tanya Hoskins MD 07/12/17 Disposition: 01 DISCHARGE HOME Condition: Stable Tayna Hoskins MD Jul 12, 2017 04:01
[2017-07-12 04:39] LABS: BILIRUBIN, URINE NEG (NEG); BLOOD, URINE TRACE (NEG); GLUCOSE,URINE NEG (NEG); KETONE, URINE NEG (NEG); MUCUS URINE MOD /lpf (OCC); NITRITE,URINE NEG (NEG); PH, URINE 7.5 (5.0-8.5); SQUAMOUS EPITHELIAL CELL URINE 7 /hpf (0-5); URINE COLOR YELLOW (YELLW/STRAW); URINE LEUKOCYTE ESTERASE LARGE (NEG)
[2017-07-12] MEDS ORDERED: BACT800T5 PO (04:42)
[2017-07-12] MEDS ORDERED: ZOFR4TAB3 SL (04:42)
[2017-07-12] MEDS ORDERED: cefTRIAXone INJ 1,000 MG in SODIUM CHLORIDE 0.9% INJ 100 ML IV ONE (04:45)
--- NOTE | 2017-07-12 05:03 | RADRPT ---
EXAM DATE/TIME: 07/12/2017 04:34 [facility] COMPARISON: No previous studies available for comparison. INDICATIONS : Continuous vomiting with abdominal pain MEDICAL HISTORY : None. SURGICAL HISTORY : None. ENCOUNTER: Initial ACUITY: 1 day PAIN SCORE: 8/10 LOCATION: Bilateral Abdomen FINDINGS: Supine and upright views of the abdomen were performed. Scattered gas in the colon and small bowel. Mildly distended mid small bowel loop. Osseous structures within normal limits. No abnormal abdominal calcification identified. CONCLUSION: Nonspecific bowel gas pattern. Oj Ahmadi MD on July 12, 2017 at 5:01 Board Certified Radiologist. This report was verified electronically.
== END 2017-07-12 05:22 | disposition home or self-care (01) ==
LOC: NEPC 01:12
DX: N39.0 Urinary tract infection, site not specified (principal); B96.89 Other specified bacterial agents as the cause of diseases classified elsewhere; G89.29 Other chronic pain; E10.9 Type 1 diabetes mellitus without complications; Z79.4 Long term (current) use of insulin
CPT/HCPCS: 74020; 80053; 81001; 83690; 84703; 85025; 87086; 96361; 96365; 96375; 99285; J0696; J2405; J7030

== ENCOUNTER 2017-07-17 19:35 | Emergency (ER) | payer OTHER ==
[~2017-07-17] VITALS: Ht 175.3 cm; Wt 79.5 kg
[~2017-07-17 19:35] MED LIST changes: -CYCL10TA PO; -TRAM50TA PO
[2017-07-17 19:43] VITALS: BP 119/90; PULSE 86; RESP 16; TEMP 98.7; O2SAT 98
[2017-07-17] MEDS ORDERED: SODIUM CHLOR 0.9% 1000 ML INJ 1,000 ML IV SCH (19:49)
[2017-07-17] MEDS ORDERED: OMEP20TA93 PO (19:54)
[2017-07-17] MEDS ORDERED: ARIP1TAB11 PO (19:54)
[2017-07-17] MEDS ORDERED: FAMOTIDINE 20 MG/2 ML VIAL IV PUSH ONE (20:00)
[2017-07-17] MEDS ORDERED: methylPREDNISolone SOD SUCC 125 MG/2 ML VIAL IV PUSH ONE (20:00)
[2017-07-17] MEDS ORDERED: SODIUM CHLORIDE 0.9% FLUSH 10 ML FLUSH IV FLUSH PRN (20:00)
[2017-07-17] MEDS ORDERED: diphenhydrAMINE HCL 50 MG/ML VIAL IVP ONE (20:00)
[2017-07-17] MEDS ORDERED: ONDANSETRON HCL 4 MG/2 ML VIAL IVP ONE (20:00)
--- NOTE | 2017-07-17 20:03 | PD ---
HPI Chief Complaint: Allergic/Adverse Reaction Time Seen by Provider: 19:49 Travel History International Travel<30 days: No Contact w/Intl Traveler<30days: No Traveled to known affect area: No History of Present Illness HPI Patient is a 21-year-old female with history of pervasive developmental delay as well as autism, presents to emergency room with her mother for evaluation of possible allergic reaction. Mom reports the patient was recently diagnosed with a UTI and was started on bactrim. Mom reports that patient developed an allergic reaction to bactrim (nausea and vomiting as well as rash on abdomen). Reports that she was started on macrobid today. Reports that she received a dose of her macrobid this morning as well as tonight. Reports that after her dose of macrobid tonight, she had intractable nausea and vomiting which lasted for about 45 minutes. Mom did give patient a dose of benadryl around 6:30pm tonight due to her pruritis from allergy to bactrim. Reports that after 45 minutes of vomiting, she began shaking her arms. Mom reports the patient does have history of seizure disorder. Unsure if patient had a seizure today. She was on antiseizure medications in the past - currently not on any antiseizure medications. Patient at this time only complaining of epigastric/upper abdominal pain. Denies sensation of airway closing in on her. Denies chest pain/ sob at this time. PFSH Past Medical History ADD: Yes (PLUS PDD (PERVASIVE DEVOLOPMENT DISORDER)) ADHD: Yes Blood Disorders: No Cancer: No Cardiovascular Problems: No Diabetes: Yes (type 1 ) Patient Takes Glucophage: Yes Diminished Hearing: No Endocrine: No Gastrointestinal Disorders: No Genitourinary: No Immune Disorder: No Implanted Vascular Access Dvce: No Musculoskeletal: No Neurologic: Yes (PERVASIVE DEVELOPMENTAL DELAY, AUTISTIC) Psychiatric: No Reproductive: No Respiratory: No Immunizations Current: Yes Thyroid Disease: No ?: Unknown : 0 Past Surgical History Surgical History: No Previous Surgery Other Surgery: No Social History Alcohol Use: Yes (OCC) Tobacco Use: No Substance Use: No Allergies-Medications (Allergen,Severity, Reaction): Coded Allergies: ibuprofen (Unverified Allergy, Severe, HIVES AND 'SUFFOCATION', 07/12/17) sulfamethoxazole (Verified Allergy, Intermediate, HIVES, 07/17/17) trimethoprim (Verified Allergy, Intermediate, HIVES, 07/17/17) nitrofurantoin (Verified Allergy, Unknown, SHAKING, VOMITING, 07/17/17) Reported Meds & Prescriptions Reported Meds & Active Scripts Active Zofran Odt (Ondansetron Odt) 4 Mg Tab 4 Mg SL Q6HR PRN Reported Omeprazole 20 Mg Tab 20 Mg PO DAILY Aripiprazole 5 Mg Tab 5 Mg PO DAILY Metformin (Metformin HCl) 500 Mg Tab 500 Mg PO BID With a meal Humalog Inj (Insulin Human Lispro) 1,000 Unit/10 Ml Vial 2-12 Units SQ ACHS Max dose at bedtime:( )units; sugars < 70,(0)units; sugars 150-199,(2)units; sugars 200-249,(4)units; sugars 250-299,(7)units; sugars 300-349,(10)units; sugars more than 349,(12)units. Review of Systems General / Constitutional: No: Fever Eyes: No: Visual changes HENT: No: Headaches Cardiovascular: No: Chest Pain or Discomfort Respiratory: No: Shortness of Breath Gastrointestinal: Positive: Nausea, Vomiting, Abdominal Pain Genitourinary: No: Dysuria Musculoskeletal: No: Pain Skin: No Rash Neurologic: No: Weakness Psychiatric: No: Depression Endocrine: No: Polydipsia Hematologic/Lymphatic: No: Easy Bruising Physical Exam Narrative GENERAL: Mild distress SKIN: Focused skin assessment warm/dry. HEAD: Atraumatic. Normocephalic. EYES: Pupils equal and round. No scleral icterus. No injection or drainage. ENT: No nasal bleeding or discharge. Mucous membranes pink and moist. Uvula midline, open and patent with no swelling NECK: Trachea midline. No JVD. CARDIOVASCULAR: Regular rate and rhythm. No murmur appreciated. RESPIRATORY: No accessory muscle use. Clear to auscultation. Breath sounds equal bilaterally. GASTROINTESTINAL: Abdomen soft, non-tender, nondistended. Hepatic and splenic margins not palpable. MUSCULOSKELETAL: No obvious deformities. No clubbing. No cyanosis. No edema. NEUROLOGICAL: Awake and alert. No obvious cranial nerve deficits. Motor grossly within normal limits. Normal speech. CN 2-12 grossly intact with no neurological deficits PSYCHIATRIC: Appropriate mood and affect; insight and judgment normal. Data Data Last Documented VS Vital Signs Date Time Temp Pulse Resp B/P (MAP) Pulse Ox O2 Delivery O2 Flow Rate FiO2 07/17/17 19:43 98.7 86 16 119/90 (100) 98 Orders Orders Complete Blood Count With Diff (07/17/17 19:49) Comprehensive Metabolic Panel (07/17/17 19:49) Lipase (07/17/17 19:49) Prothrombin Time / Inr (Pt) (07/17/17 19:49) Act Partial Throm Time (Ptt) (07/17/17 19:49) Urinalysis - C+S If Indicated (07/17/17 19:49) Iv Access Insert/Monitor (07/17/17 19:49) Ecg Monitoring (07/17/17 19:49) Oximetry (07/17/17 19:49) Ondansetron Inj (Zofran Inj) (07/17/17 20:00) Sodium Chlor 0.9% 1000 Ml Inj (Ns 1000 M (07/17/17 19:49) Sodium Chloride 0.9% Flush (Ns Flush) (07/17/17 20:00) Famotidine Inj (Pepcid Inj) (07/17/17 20:00) Diphenhydramine Inj (Benadryl Inj) (07/17/17 20:00) Methylprednisolone So Succ Inj (Solumedr (07/17/17 20:00) Al-Mag Hy-Si 40-40-4 Mg/Ml Liq (Mag-Al P (07/17/17 21:00) Lidocaine 2% Viscous (Xylocaine 2% Visco (07/17/17 21:00) Urine Culture (07/17/17 21:56) Ceftriaxone Inj (Rocephin Inj) (07/17/17 22:15) Labs Laboratory Tests Test 07/17/17 19:55 07/17/17 21:56 White Blood Count 4.4 TH/MM3 Red Blood Count 3.93 MIL/MM3 Hemoglobin 11.2 GM/DL Hematocrit 33.7 % Mean Corpuscular Volume 85.8 FL Mean Corpuscular Hemoglobin 28.4 PG Mean Corpuscular Hemoglobin Concent 33.1 % Red Cell Distribution Width 14.9 % Platelet Count 269 TH/MM3 Mean Platelet Volume 8.1 FL Neutrophils (%) (Auto) 40.0 % Lymphocytes (%) (Auto) 42.0 % Monocytes (%) (Auto) 11.1 % Eosinophils (%) (Auto) 6.6 % Basophils (%) (Auto) 0.3 % Neutrophils # (Auto) 1.8 TH/MM3 Lymphocytes # (Auto) 1.8 TH/MM3 Monocytes # (Auto) 0.5 TH/MM3 Eosinophils # (Auto) 0.3 TH/MM3 Basophils # (Auto) 0.0 TH/MM3 CBC Comment DIFF FINAL Differential Comment Prothrombin Time 10.2 SEC Prothromb Time International Ratio 1.0 RATIO Activated Partial Thromboplast Time 26.9 SEC Blood Urea Nitrogen 11 MG/DL Creatinine 1.04 MG/DL Random Glucose 79 MG/DL Total Protein 7.9 GM/DL Albumin 3.5 GM/DL Calcium Level 8.8 MG/DL Alkaline Phosphatase 85 U/L Aspartate Amino Transf (AST/SGOT) 32 U/L Alanine Aminotransferase (ALT/SGPT) 22 U/L Total Bilirubin 0.2 MG/DL Sodium Level 137 MEQ/L Potassium Level 4.0 MEQ/L Chloride Level 103 MEQ/L Carbon Dioxide Level 28.3 MEQ/L Anion Gap 6 MEQ/L Estimat Glomerular Filtration Rate 79 ML/MIN Lipase 140 U/L Urine Color YELLOW Urine Turbidity HAZY Urine pH 6.0 Urine Specific Pierz 1.013 Urine Protein NEG mg/dL Urine Glucose (UA) NEG mg/dL Urine Ketones NEG mg/dL Urine Occult Blood NEG Urine Nitrite NEG Urine Bilirubin NEG Urine Urobilinogen LESS THAN 2.0 MG/DL Urine Leukocyte Esterase LARGE Urine RBC 9 /hpf Urine WBC 35 /hpf Urine Squamous Epithelial Cells 6 /hpf Urine Bacteria RARE /hpf Urine Mucus FEW /lpf Microscopic Urinalysis Comment CULTURE INDICATED MDM Medical Decision Making Medical Screen Exam Complete: Yes Emergency Medical Condition: Yes Medical Record Reviewed: Yes Interpretation(s) Vital Signs Date Time Temp Pulse Resp B/P (MAP) Pulse Ox O2 Delivery O2 Flow Rate FiO2 07/17/17 19:43 98.7 86 16 119/90 (100) 98 Differential Diagnosis UTI, allergic reaction, uti, electrolyte abnormality Narrative Course During the course of the patients emergency department visit, the patients history, examination, and differential diagnosis were reviewed with the patient. The patient was placed on a junior php developer with oximetry and frequent blood pressure monitoring. The patient had an IV access obtained and blood work sent for analysis. The patient was initially provided IVF, IV zofran, IV steroids, IV pepcid The patients laboratory studies were reviewed and remarkable for : Laboratory Tests Test 07/17/17 19:55 07/17/17 21:56 White Blood Count 4.4 TH/MM3 (4.0-11.0) Red Blood Count 3.93 MIL/MM3 (4.00-5.30) Hemoglobin 11.2 GM/DL (11.6-15.3) Hematocrit 33.7 % (35.0-46.0) Mean Corpuscular Volume 85.8 FL (80.0-100.0) Mean Corpuscular Hemoglobin 28.4 PG (27.0-34.0) Mean Corpuscular Hemoglobin Concent 33.1 % (32.0-36.0) Red Cell Distribution Width 14.9 % (11.6-17.2) Platelet Count 269 TH/MM3 (150-450) Mean Platelet Volume 8.1 FL (7.0-11.0) Neutrophils (%) (Auto) 40.0 % (16.0-70.0) Lymphocytes (%) (Auto) 42.0 % (9.0-44.0) Monocytes (%) (Auto) 11.1 % (0.0-8.0) Eosinophils (%) (Auto) 6.6 % (0.0-4.0) Basophils (%) (Auto) 0.3 % (0.0-2.0) Neutrophils # (Auto) 1.8 TH/MM3 (1.8-7.7) Lymphocytes # (Auto) 1.8 TH/MM3 (1.0-4.8) Monocytes # (Auto) 0.5 TH/MM3 (0-0.9) Eosinophils # (Auto) 0.3 TH/MM3 (0-0.4) Basophils # (Auto) 0.0 TH/MM3 (0-0.2) CBC Comment DIFF FINAL Differential Comment Prothrombin Time 10.2 SEC (9.8-11.6) Prothromb Time International Ratio 1.0 RATIO Activated Partial Thromboplast Time 26.9 SEC (24.3-30.1) Blood Urea Nitrogen 11 MG/DL (7-18) Creatinine 1.04 MG/DL (0.50-1.00) Random Glucose 79 MG/DL (74-106) Total Protein 7.9 GM/DL (6.4-8.2) Albumin 3.5 GM/DL (3.4-5.0) Calcium Level 8.8 MG/DL (8.5-10.1) Alkaline Phosphatase 85 U/L (45-117) Aspartate Amino Transf (AST/SGOT) 32 U/L (15-37) Alanine Aminotransferase (ALT/SGPT) 22 U/L (10-53) Total Bilirubin 0.2 MG/DL (0.2-1.0) Sodium Level 137 MEQ/L (136-145) Potassium Level 4.0 MEQ/L (3.5-5.1) Chloride Level 103 MEQ/L (98-107) Carbon Dioxide Level 28.3 MEQ/L (21.0-32.0) Anion Gap 6 MEQ/L (5-15) Estimat Glomerular Filtration Rate 79 ML/MIN (>89) Lipase 140 U/L (73-393) Urine Color YELLOW (YELLW/STRAW) Urine Turbidity HAZY (CLEAR) Urine pH 6.0 (5.0-8.5) Urine Specific Pierz 1.013 (1.002-1.035) Urine Protein NEG mg/dL (NEG-TRACE) Urine Glucose (UA) NEG mg/dL (NEG) Urine Ketones NEG mg/dL (NEG) Urine Occult Blood NEG (NEG) Urine Nitrite NEG (NEG) Urine Bilirubin NEG (NEG) Urine Urobilinogen LESS THAN 2.0 MG/DL (LESS Urine Leukocyte Esterase LARGE (NEG) Urine RBC 9 /hpf (0-3) Urine WBC 35 /hpf (0-5) Urine Squamous Epithelial Cells 6 /hpf (0-5) Urine Bacteria RARE /hpf (NONE) Urine Mucus FEW /lpf (OCC) Microscopic Urinalysis Comment CULTURE INDICATED Patient reevaluated, patient feeling much better at this time. UA is positive for rare bacteria, 35 white blood cells, large luek esterase. IV is Rocephin ordered for her. Plan to discharge patient home on Keflex, mom will follow-up with urine cultures from today. She will follow-up with her primary care doctor and will return to the emergency room as needed. Diagnosis Primary Impression: UTI (urinary tract infection) Additional Impressions: Nausea and vomiting Allergic reaction caused by a drug Patient Instructions: General Instructions Additional Instructions: Please stop taking macrobid and start taking Keflex for treatment of your UTI. Please follow up with your primary care doctor in 2-3 days Return to the ER if symptoms worsen or progress Return to the ER as needed Med/Other Pt SpecificInfo: Prescription(s) given Scripts Cephalexin (Keflex) 500 Mg Cap 500 MG PO Q6H for Infection for 7 Days, #28 CAP 0 Refills Prov: Carmen Vazquez DO 07/17/17 Disposition: 01 DISCHARGE HOME Condition: Stable Carmen Vazquez DO Jul 17, 2017 20:03
[2017-07-17 20:12] LABS: AUTOMATED NEUTROPHIL # 1.8 TH/MM3 (1.8-7.7); BASOPHIL % 0.3 % (0.0-2.0); EOSINOPHIL # 0.3 TH/MM3 (0-0.4); EOSINOPHIL % 6.6 % (0.0-4.0); HEMATOCRIT 33.7 % (35.0-46.0); HEMOGLOBIN 11.2 GM/DL (11.6-15.3); LYMPHOCYTE # 1.8 TH/MM3 (1.0-4.8); MEAN CELL VOLUME 85.8 FL (80.0-100.0); MEAN CORPUSCULAR HEMOGLOBIN 28.4 PG (27.0-34.0); MEAN CORPUSCULAR HGB CONC 33.1 % (32.0-36.0); MEAN PLATELET VOLUME 8.1 FL (7.0-11.0); MONO % 11.1 % (0.0-8.0); MONOCYTE # 0.5 TH/MM3 (0-0.9); PLATELET COUNT 269 TH/MM3 (150-450); RED BLOOD COUNT 3.93 MIL/MM3 (4.00-5.30); RED CELL DISTRIBUTION WIDTH 14.9 % (11.6-17.2); WHITE BLOOD COUNT 4.4 TH/MM3 (4.0-11.0)
[2017-07-17 20:15] LABS: PROTHROMBIN TIME - PATIENT 10.2 SEC (9.8-11.6)
[2017-07-17 20:23] LABS: ALBUMIN 3.5 GM/DL (3.4-5.0); AST (GOT) 32 U/L (15-37); BICARBONATE 28.3 MEQ/L (21.0-32.0); BLOOD UREA NITROGEN 11 MG/DL (7-18); CALCIUM 8.8 MG/DL (8.5-10.1); CHLORIDE 103 MEQ/L (98-107); CREATININE 1.04 MG/DL (0.50-1.00); GLOMERULAR FILTRATION RATE 79 ML/MIN (>89); GLUCOSE,RANDOM 79 MG/DL (74-106); LIPASE 140 U/L (73-393); SODIUM (NA) 137 MEQ/L (136-145)
[2017-07-17 20:27] LABS: ALKALINE PHOSPHATASE 85 U/L (45-117); ALT (GPT) 22 U/L (10-53); TOTAL BILIRUBIN ADULT 0.2 MG/DL (0.2-1.0); TOTAL PROTEIN 7.9 GM/DL (6.4-8.2)
[2017-07-17] MEDS ORDERED: LIDOCAINE VISCOUS 2% SOLN 15 ML UDC PO ONE (21:00)
[2017-07-17] MEDS ORDERED: ALUMINUM/MAGNESIUM/SIMETH 30 ML CUP PO ONE (21:00)
[2017-07-17 22:11] LABS: BACTERIA, URINE RARE /hpf; BILIRUBIN, URINE NEG (NEG); BLOOD, URINE NEG (NEG); GLUCOSE,URINE NEG (NEG); KETONE, URINE NEG (NEG); MUCUS URINE FEW /lpf (OCC); NITRITE,URINE NEG (NEG); SQUAMOUS EPITHELIAL CELL URINE 6 /hpf (0-5); URINE COLOR YELLOW (YELLW/STRAW); URINE LEUKOCYTE ESTERASE LARGE (NEG)
[2017-07-17] MEDS ORDERED: cefTRIAXone INJ 1,000 MG in SODIUM CHLORIDE 0.9% INJ 100 ML IV ONE (22:15)
[2017-07-17] MEDS ORDERED: CEPH-460 PO (22:36)
== END 2017-07-17 23:18 | disposition home or self-care (01) ==
LOC: NEPD 19:35
DX: N39.0 Urinary tract infection, site not specified (principal); R11.2 Nausea with vomiting, unspecified; F84.0 Autistic disorder; R62.50 Unspecified lack of expected normal physiological development in childhood; G40.909 Epilepsy, unspecified, not intractable, without status epilepticus; F90.9 Attention-deficit hyperactivity disorder, unspecified type; E10.9 Type 1 diabetes mellitus without complications; Z79.4 Long term (current) use of insulin; Z79.899 Other long term (current) drug therapy
CPT/HCPCS: 80053; 81001; 83690; 85025; 85610; 85730; 87086; 96361; 96365; 96375; 99284; J0696; J1200; J2405; J2930; J7030

== ENCOUNTER 2017-09-18 14:03 | Emergency (ER) | payer OTHER ==
[~2017-09-18 14:03] MED LIST changes: +ARIP1TAB11 PO; -BACT800T5 PO; +CEPH-460 PO; +OMEP20TA93 PO
[2017-09-18 14:05] VITALS: BP 122/88; PULSE 80; RESP 18; TEMP 98.9; O2SAT 97
[2017-09-18 15:22] LABS: AUTOMATED NEUTROPHIL # 0.7 TH/MM3 (1.8-7.7); BASOPHIL % 0.5 % (0.0-2.0); EOSINOPHIL % 0.5 % (0.0-4.0); HEMATOCRIT 34.1 % (35.0-46.0); HEMOGLOBIN 11.4 GM/DL (11.6-15.3); MEAN CELL VOLUME 84.7 FL (80.0-100.0); MEAN CORPUSCULAR HEMOGLOBIN 28.4 PG (27.0-34.0); MEAN CORPUSCULAR HGB CONC 33.5 % (32.0-36.0); MEAN PLATELET VOLUME 7.4 FL (7.0-11.0); MONO % 14.1 % (0.0-8.0); MONOCYTE # 0.4 TH/MM3 (0-0.9); NEUT % 20.9 % (16.0-70.0); PLATELET COUNT 235 TH/MM3 (150-450); RED BLOOD COUNT 4.02 MIL/MM3 (4.00-5.30); RED CELL DISTRIBUTION WIDTH 15.1 % (11.6-17.2); WHITE BLOOD COUNT 3.1 TH/MM3 (4.0-11.0)
[2017-09-18 15:26] LABS: AMORPHOUS SEDIMENT, URINE RARE; BILIRUBIN, URINE NEG (NEG); BLOOD, URINE NEG (NEG); GLUCOSE,URINE NEG (NEG); KETONE, URINE NEG (NEG); MUCUS URINE FEW /lpf (OCC); NITRITE,URINE NEG (NEG); SQUAMOUS EPITHELIAL CELL URINE 17 /hpf (0-5); URINE COLOR YELLOW (YELLW/STRAW); URINE LEUKOCYTE ESTERASE LARGE (NEG)
[2017-09-18 15:39] LABS: ALBUMIN 3.5 GM/DL (3.4-5.0); ALT (GPT) 16 U/L (10-53); AST (GOT) 19 U/L (15-37); BICARBONATE 29.4 MEQ/L (21.0-32.0); BLOOD UREA NITROGEN 8 MG/DL (7-18); CALCIUM 8.4 MG/DL (8.5-10.1); CHLORIDE 103 MEQ/L (98-107); CREATININE 0.75 MG/DL (0.50-1.00); GLOMERULAR FILTRATION RATE 115 ML/MIN (>89); GLUCOSE,RANDOM 88 MG/DL (74-106); SODIUM (NA) 138 MEQ/L (136-145)
[2017-09-18 15:41] LABS: ALKALINE PHOSPHATASE 64 U/L (45-117); TOTAL BILIRUBIN ADULT 0.2 MG/DL (0.2-1.0); TOTAL PROTEIN 7.7 GM/DL (6.4-8.2)
[2017-09-18 16:14] LABS: BANDS 2 % (0-6); LYMPHOCYTES 64 % (9-44); MONOCYTES 7 % (0-8); NEUTROPHIL # MANUAL DIFF 0.9 TH/MM3 (1.8-7.7); POLYS (SEG NEUTROPHILS) 26 % (16-70)
--- NOTE | 2017-09-18 16:19 | PD ---
HPI Chief Complaint: GI Complaint Time Seen by Provider: 15:56 Travel History International Travel<30 days: No Contact w/Intl Traveler<30days: No Traveled to known affect area: No History of Present Illness HPI 22-year-old female presents to the emergency department with complaint of both of her earrings "sinking into her earlobes." The right one "sunk in" completely yesterday. She is asking for the left one to also be removed because it is almost completely "sunk in." Per the triage note the patient had complained of epigastric pain, vomiting since Friday and when this was questioned the patient says that they are ready have been seen for this complaint and this is not what they are here for. She is here specifically for her earrings to be removed and that is it. Has not taken any medication or try any treatments to alleviate her symptoms. Denies pain unless the earlobe is touched. Denies drainage from the sites. Denies fevers. Allergies to ibuprofen, nitrofurantoin, Bactrim. Has no other medical complaints. No other modifying factors or associated signs and symptoms. PFSH Past Medical History ADD: Yes (PLUS PDD (PERVASIVE DEVOLOPMENT DISORDER)) ADHD: Yes Blood Disorders: No Cancer: No Cardiovascular Problems: No Diabetes: Yes (type 1 ) Patient Takes Glucophage: No Diminished Hearing: No Endocrine: No Gastrointestinal Disorders: No Genitourinary: No Immune Disorder: No Implanted Vascular Access Dvce: No Musculoskeletal: No Neurologic: Yes (PERVASIVE DEVELOPMENTAL DELAY, AUTISTIC) Psychiatric: No Reproductive: No Respiratory: No Immunizations Current: Yes Thyroid Disease: No ?: Not : 0 Past Surgical History Surgical History: No Previous Surgery Other Surgery: No Social History Alcohol Use: No Tobacco Use: No Substance Use: No Allergies-Medications (Allergen,Severity, Reaction): Coded Allergies: ibuprofen (Unverified Allergy, Severe, HIVES AND 'SUFFOCATION', 09/18/17) sulfamethoxazole (Verified Allergy, Intermediate, HIVES, 09/18/17) trimethoprim (Verified Allergy, Intermediate, HIVES, 09/18/17) nitrofurantoin (Verified Allergy, Unknown, SHAKING, VOMITING, 09/18/17) Reported Meds & Prescriptions Reported Meds & Active Scripts Active Zofran Odt (Ondansetron Odt) 4 Mg Tab 4 Mg SL Q6HR PRN Reported Omeprazole 20 Mg Tab 20 Mg PO DAILY Aripiprazole 5 Mg Tab 5 Mg PO DAILY Review of Systems Except as stated in HPI: all other systems reviewed are Neg Physical Exam Narrative GENERAL: Well-nourished, well-developed black female patient, in no acute distress SKIN: Warm and dry. Bilateral ear lobes with earrings that are embedded in the earlobe; right worse than left; no purulent drainage; earlobe is without erythema, edema. HEAD: Atraumatic. Normocephalic. EYES: Pupils equal and round. No scleral icterus. No injection or drainage. ENT: Mucosa pink and moist. Airway patent. NECK: Trachea midline. CARDIOVASCULAR: Regular rate. RESPIRATORY: No accessory muscle use. GASTROINTESTINAL: Obese. MUSCULOSKELETAL: No obvious deformities. No clubbing. No cyanosis. No edema. NEUROLOGICAL: Awake and alert. Oriented 3. No obvious cranial nerve deficits. Motor grossly within normal limits. Normal speech. PSYCHIATRIC: Appropriate mood and affect; insight and judgment normal. Data Data Last Documented VS Vital Signs Date Time Temp Pulse Resp B/P (MAP) Pulse Ox O2 Delivery O2 Flow Rate FiO2 09/18/17 14:05 98.9 80 18 122/88 (99) 97 Orders Orders Complete Blood Count With Diff (09/18/17 14:09) Comprehensive Metabolic Panel (09/18/17 14:09) Urinalysis - C+S If Indicated (09/18/17 14:09) Ed Urine Pregnancytest Poc (09/18/17 14:09) Lipase (09/18/17 14:09) Labs Laboratory Tests Test 09/18/17 15:05 09/18/17 15:10 Urine Color YELLOW Urine Turbidity HAZY Urine pH 6.0 Urine Specific [place] 1.023 Urine Protein TRACE mg/dL Urine Glucose (UA) NEG mg/dL Urine Ketones NEG mg/dL Urine Occult Blood NEG Urine Nitrite NEG Urine Bilirubin NEG Urine Urobilinogen LESS THAN 2.0 MG/DL Urine Leukocyte Esterase LARGE Urine RBC 6 /hpf Urine WBC 7 /hpf Urine Squamous Epithelial Cells 17 /hpf Urine Amorphous Sediment RARE Urine Mucus FEW /lpf Microscopic Urinalysis Comment CULT NOT INDICATED White Blood Count 3.1 TH/MM3 Red Blood Count 4.02 MIL/MM3 Hemoglobin 11.4 GM/DL Hematocrit 34.1 % Mean Corpuscular Volume 84.7 FL Mean Corpuscular Hemoglobin 28.4 PG Mean Corpuscular Hemoglobin Concent 33.5 % Red Cell Distribution Width 15.1 % Platelet Count 235 TH/MM3 Mean Platelet Volume 7.4 FL Neutrophils (%) (Auto) 20.9 % Lymphocytes (%) (Auto) 64.0 % Monocytes (%) (Auto) 14.1 % Eosinophils (%) (Auto) 0.5 % Basophils (%) (Auto) 0.5 % Neutrophils # (Auto) 0.7 TH/MM3 Lymphocytes # (Auto) 2.0 TH/MM3 Monocytes # (Auto) 0.4 TH/MM3 Eosinophils # (Auto) 0.0 TH/MM3 Basophils # (Auto) 0.0 TH/MM3 CBC Comment AUTO DIFF Differential Total Cells Counted 100 Neutrophils % (Manual) 26 % Band Neutrophils % 2 % Lymphocytes % 64 % Monocytes % 7 % Eosinophils % 1 % Neutrophils # (Manual) 0.9 TH/MM3 Differential Comment FINAL DIFF MANUAL Platelet Estimate NORMAL Platelet Morphology Comment NORMAL Blood Urea Nitrogen 8 MG/DL Creatinine 0.75 MG/DL Random Glucose 88 MG/DL Total Protein 7.7 GM/DL Albumin 3.5 GM/DL Calcium Level 8.4 MG/DL Alkaline Phosphatase 64 U/L Aspartate Amino Transf (AST/SGOT) 19 U/L Alanine Aminotransferase (ALT/SGPT) 16 U/L Total Bilirubin 0.2 MG/DL Sodium Level 138 MEQ/L Potassium Level 3.8 MEQ/L Chloride Level 103 MEQ/L Carbon Dioxide Level 29.4 MEQ/L Anion Gap 6 MEQ/L Estimat Glomerular Filtration Rate 115 ML/MIN Lipase 123 U/L [facility] Medical Decision Making Medical Screen Exam Complete: Yes Emergency Medical Condition: Yes Medical Record Reviewed: Yes Differential Diagnosis Embedded earrings of left ear, embedded hearing of right ear, medical clearance Narrative Course 22-year-old female with embedded earrings of bilateral ears. See my procedure note for earing removal. The patient apparently complained of abdominal pain in triage and abdominal pain protocol was initiated and CBC, CMP, urinalysis resulted and are all unremarkable. Patient said she was seen for her abdominal complaint yesterday and is only here to have her earrings removed from the earlobes. Instructed patient to follow up with primary care provider. Patient verbalizes understanding and agreement with treatment plan. Patient is medically cleared and stable for discharge. Discussed reasons to return to the emergency department. Patient agrees with treatment plan. The patients vital signs are stable and the patient is stable for outpatient follow-up and treatment. Patient discharged home, stable and in no acute distress. Procedures Procedure Narrative Removal of embedded earrings: Both earlobes were infiltrated with 1% lidocaine and the earring was pushed back through the front of the earlobe. Patient tolerated well. Diagnosis Primary Impression: Embedded earring of left ear Qualified Codes: S00.452A - Superficial foreign body of left ear, initial encounter Additional Impression: Embedded earring of right ear Qualified Codes: S00.451A - Superficial foreign body of right ear, initial encounter Referrals: [facility] Primary Care Physician Patient Instructions: General Instructions Additional Instructions: Topical antibiotic ointment to affected areas Keep area clean and dry Follow-up with primary care provider Return to the emergency department immediately with worsening of symptoms Med/Other Pt SpecificInfo: No Change to Meds, No Meds Exist/No RX given Disposition: 01 DISCHARGE HOME Condition: Stable Linh Adam Sep 18, 2017 16:19
--- NOTE | 2017-09-18 16:26 | PD ---
Physical Exam Date Seen by Provider: Sep 18, 2017 Narrative This patient presents with the chief complaint of earrings embedded in both earlobes. Apparently, she complaining with abdominal pain at triage. Protocol abdominal pain labs were subsequently entered in triage. However, the patient states that the real reason why she is here is because of her ear rings. Data Data Last Documented VS Vital Signs Date Time Temp Pulse Resp B/P (MAP) Pulse Ox O2 Delivery O2 Flow Rate FiO2 09/18/17 14:05 98.9 80 18 122/88 (99) 97 Orders Orders Complete Blood Count With Diff (09/18/17 14:09) Comprehensive Metabolic Panel (09/18/17 14:09) Urinalysis - C+S If Indicated (09/18/17 14:09) Ed Urine Pregnancytest Poc (09/18/17 14:09) Lipase (09/18/17 14:09) Lidocaine 1% Inj (Xylocaine 1% Inj) (09/18/17 16:30) Labs Laboratory Tests Test 09/18/17 15:05 09/18/17 15:10 Urine Color YELLOW Urine Turbidity HAZY Urine pH 6.0 Urine Specific [place] 1.023 Urine Protein TRACE mg/dL Urine Glucose (UA) NEG mg/dL Urine Ketones NEG mg/dL Urine Occult Blood NEG Urine Nitrite NEG Urine Bilirubin NEG Urine Urobilinogen LESS THAN 2.0 MG/DL Urine Leukocyte Esterase LARGE Urine RBC 6 /hpf Urine WBC 7 /hpf Urine Squamous Epithelial Cells 17 /hpf Urine Amorphous Sediment RARE Urine Mucus FEW /lpf Microscopic Urinalysis Comment CULT NOT INDICATED White Blood Count 3.1 TH/MM3 Red Blood Count 4.02 MIL/MM3 Hemoglobin 11.4 GM/DL Hematocrit 34.1 % Mean Corpuscular Volume 84.7 FL Mean Corpuscular Hemoglobin 28.4 PG Mean Corpuscular Hemoglobin Concent 33.5 % Red Cell Distribution Width 15.1 % Platelet Count 235 TH/MM3 Mean Platelet Volume 7.4 FL Neutrophils (%) (Auto) 20.9 % Lymphocytes (%) (Auto) 64.0 % Monocytes (%) (Auto) 14.1 % Eosinophils (%) (Auto) 0.5 % Basophils (%) (Auto) 0.5 % Neutrophils # (Auto) 0.7 TH/MM3 Lymphocytes # (Auto) 2.0 TH/MM3 Monocytes # (Auto) 0.4 TH/MM3 Eosinophils # (Auto) 0.0 TH/MM3 Basophils # (Auto) 0.0 TH/MM3 CBC Comment AUTO DIFF Differential Total Cells Counted 100 Neutrophils % (Manual) 26 % Band Neutrophils % 2 % Lymphocytes % 64 % Monocytes % 7 % Eosinophils % 1 % Neutrophils # (Manual) 0.9 TH/MM3 Differential Comment FINAL DIFF MANUAL Platelet Estimate NORMAL Platelet Morphology Comment NORMAL Blood Urea Nitrogen 8 MG/DL Creatinine 0.75 MG/DL Random Glucose 88 MG/DL Total Protein 7.7 GM/DL Albumin 3.5 GM/DL Calcium Level 8.4 MG/DL Alkaline Phosphatase 64 U/L Aspartate Amino Transf (AST/SGOT) 19 U/L Alanine Aminotransferase (ALT/SGPT) 16 U/L Total Bilirubin 0.2 MG/DL Sodium Level 138 MEQ/L Potassium Level 3.8 MEQ/L Chloride Level 103 MEQ/L Carbon Dioxide Level 29.4 MEQ/L Anion Gap 6 MEQ/L Estimat Glomerular Filtration Rate 115 ML/MIN Lipase 123 U/L MDM Supervised Visit with LEONOR: Yes Narrative Course I, Dr. Weiner, have reviewed the advance practice practitioner's documentation and am in agreement, met with the patient face to face, made the diagnosis, and the medical decision making was done by me. *My assessment and Findings: The studs of the earrings in both earlobes have involuted into the earlobes. Please see Linh Adam NP's note for results of laboratory and radiographic evaluation, ED course, final diagnosis and disposition Ynes Weiner MD Sep 18, 2017 16:26
[2017-09-18] MEDS ORDERED: LIDOCAINE HCL 1% 20 ML VIAL INFIL ONE (16:30)
== END 2017-09-18 18:07 | disposition home or self-care (01) ==
LOC: NEPD 14:03
DX: S00.452A Superficial foreign body of left ear, initial encounter (principal); S00.451A Superficial foreign body of right ear, initial encounter; W45.8XXA Other foreign body or object entering through skin, initial encounter
CPT/HCPCS: 80053; 81001; 83690; 84703; 85007; 85027; 96374

== ENCOUNTER 2017-11-19 11:28 | Emergency (ER) | payer OTHER, MEDICAID ==
[~2017-11-19 11:28] MED LIST changes: -CEPH-460 PO; -HUMALOG SQ; -METF500T PO
[2017-11-19 11:43] VITALS: BP 132/71; PULSE 82; RESP 16; TEMP 98.2; O2SAT 100
--- NOTE | 2017-11-19 12:29 | PD ---
HPI Chief Complaint: Medical Clearance Time Seen by Provider: 11:48 Travel History International Travel<30 days: No Contact w/Intl Traveler<30days: No Traveled to known affect area: No History of Present Illness HPI 22-year-old female presents to the emergency room requesting a test. Patient reports mid lower abdominal cramping for the past 2 weeks. Patient states she was at work today and the cramping became so severe that she had to call 911. The ambulance brought her here. Her last menstrual cycle was due November 03. Patient states because she has not had her menstrual cycle she believes she may be . She has not taken a test at home. She has had no vaginal bleeding. She has never been . She has never taken anything for her symptoms. She reports occasional nausea without vomiting. Patient has history of diabetes, autism, and intellectual disability. Her mother presents with her. [facility] Past Medical History ADD: Yes (PLUS PDD (PERVASIVE DEVOLOPMENT DISORDER)) ADHD: Yes Blood Disorders: No Cancer: No Cardiovascular Problems: No Diabetes: Yes (type 1 ) Patient Takes Glucophage: Yes (pt doesnt know ) Diminished Hearing: No Endocrine: No Gastrointestinal Disorders: No Genitourinary: No Immune Disorder: No Implanted Vascular Access Dvce: No Musculoskeletal: No Neurologic: Yes (PERVASIVE DEVELOPMENTAL DELAY, AUTISTIC) Psychiatric: No Reproductive: No Respiratory: No Immunizations Current: Yes Thyroid Disease: No Tetanus Vaccination: > 5 Years ?: Unknown LMP: 1 mth ago : 0 Past Surgical History Surgical History: No Previous Surgery Other Surgery: No Social History Alcohol Use: No Tobacco Use: No Substance Use: No Allergies-Medications (Allergen,Severity, Reaction): Coded Allergies: ibuprofen (Unverified Allergy, Severe, HIVES AND 'SUFFOCATION', 11/19/17) sulfamethoxazole (Verified Allergy, Intermediate, HIVES, 11/19/17) trimethoprim (Verified Allergy, Intermediate, HIVES, 11/19/17) nitrofurantoin (Verified Allergy, Unknown, SHAKING, VOMITING, 11/19/17) Reported Meds & Prescriptions Reported Meds & Active Scripts Active Active Prescriptions or Reported Medications Unobtainable Review of Systems Except as stated in HPI: all other systems reviewed are Neg Physical Exam Narrative GENERAL: Well-nourished, well-developed female no acute distress. Afebrile. Ambulatory. SKIN: Focused skin assessment warm/dry. HEAD: Normocephalic. EYES: No scleral icterus. No injection or drainage. NECK: Supple, trachea midline. No JVD or lymphadenopathy. CARDIOVASCULAR: Regular rate and rhythm without murmurs, gallops, or rubs. RESPIRATORY: Breath sounds equal bilaterally. No accessory muscle use. GASTROINTESTINAL: Abdomen soft, non-tender, nondistended. No rebound tenderness or guarding. No peritoneal signs. Data Data Last Documented VS Vital Signs Date Time Temp Pulse Resp B/P (MAP) Pulse Ox O2 Delivery O2 Flow Rate FiO2 11/19/17 11:43 98.2 82 16 132/71 (91) 100 MDM Medical Decision Making Medical Screen Exam Complete: Yes Emergency Medical Condition: Yes Medical Record Reviewed: Yes Differential Diagnosis Menstrual cramping, , gastroenteritis, muscle strain, UTI Narrative Course 22-year-old female presents to the emergency room for evaluation of lower mid abdominal cramping for the past 2 weeks. No other symptoms. She is requesting a test because her menstrual cycle was 2 weeks late. She has not taken a test at home. She has had no vaginal bleeding. Abdomen is soft, nontender. No rebound tenderness or guarding. Bedside urine test is negative. Patient likely has cramping from menstruation or gas. Told to follow -up with a primary care physician or return for worsening symptoms. She understands and agrees to plan. Diagnosis Primary Impression: Abdominal cramping Referrals: Primary Care Physician Additional Instructions: Take Tylenol for pain. If you believe you are , you can take a test at home. Follow-up with primary care physician. Return to the emergency room for worsening symptoms. Scripts Unable to Obtain Active Prescriptions or Reported Meds Disposition: 01 DISCHARGE HOME Condition: Stable Mya Lyles Nov 19, 2017 12:29
== END 2017-11-19 13:24 | disposition home or self-care (01) ==
LOC: NEPK 11:28
DX: R10.9 Unspecified abdominal pain (principal); R11.0 Nausea; E10.9 Type 1 diabetes mellitus without complications; Z79.4 Long term (current) use of insulin; Z88.6 Allergy status to analgesic agent; Z88.2 Allergy status to sulfonamides
CPT/HCPCS: 99282

== ENCOUNTER 2017-12-01 10:37 | Emergency (ER) | payer OTHER, MEDICAID ==
[~2017-12-01] VITALS: Ht 170.2 cm; Wt 110.0 kg
[2017-12-01 10:48] VITALS: BP 121/84; PULSE 94; RESP 18; TEMP 98.5; O2SAT 100
[2017-12-01] MEDS ORDERED: LORazepam 2 MG/ML VIAL ONE (11:04)
[2017-12-01] MEDS ORDERED: LORazepam 2 MG/ML VIAL IM ONE (11:15)
[2017-12-01 11:26] LABS: BACTERIA, URINE RARE /hpf; BILIRUBIN, URINE NEG (NEG); BLOOD, URINE NEG (NEG); GLUCOSE,URINE NEG (NEG); KETONE, URINE NEG (NEG); MUCUS URINE FEW /lpf (OCC); NITRITE,URINE NEG (NEG); SQUAMOUS EPITHELIAL CELL URINE 5 /hpf (0-5); URINE COLOR YELLOW (YELLW/STRAW); URINE LEUKOCYTE ESTERASE SMALL (NEG)
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
[2017-12-01 11:42] VITALS: BP 126/62; PULSE 68; RESP 16; TEMP 97.8; O2SAT 98
[2017-12-01] MEDS ORDERED: ZIPRASIDONE MESYLATE 20 MG VIAL IM ONE (11:45)
[2017-12-01] MEDS ORDERED: diphenhydrAMINE HCL 50 MG/ML VIAL IM ONE (11:45)
[2017-12-01 11:51] LABS: AUTOMATED NEUTROPHIL # 1.9 TH/MM3 (1.8-7.7); BASOPHIL % 0.3 % (0.0-2.0); EOSINOPHIL # 0.1 TH/MM3 (0-0.4); EOSINOPHIL % 1.5 % (0.0-4.0); HEMATOCRIT 34.2 % (35.0-46.0); HEMOGLOBIN 11.4 GM/DL (11.6-15.3); LYMPH % 53.2 % (9.0-44.0); LYMPHOCYTE # 2.7 TH/MM3 (1.0-4.8); MEAN CORPUSCULAR HEMOGLOBIN 27.8 PG (27.0-34.0); MEAN CORPUSCULAR HGB CONC 33.4 % (32.0-36.0); MEAN PLATELET VOLUME 8.4 FL (7.0-11.0); MONOCYTE # 0.4 TH/MM3 (0-0.9); PLATELET COUNT 272 TH/MM3 (150-450); RED BLOOD COUNT 4.12 MIL/MM3 (4.00-5.30); RED CELL DISTRIBUTION WIDTH 14.8 % (11.6-17.2)
[2017-12-01] MEDS ORDERED: CEPH-460 PO (12:20)
[2017-12-01] MEDS ORDERED: MUPI2OIN TOPICAL (12:21)
[2017-12-01] MEDS ORDERED: ABIL10TA8 PO (12:22)
[2017-12-01] MEDS ORDERED: DEPO150I IM (12:22)
[2017-12-01 12:26] LABS: ALBUMIN 3.7 GM/DL (3.4-5.0); BLOOD UREA NITROGEN 12 MG/DL (7-18); CREATININE 0.96 MG/DL (0.50-1.00); GLOMERULAR FILTRATION RATE 86 ML/MIN (>89); GLUCOSE,RANDOM 85 MG/DL (74-106); TOTAL PROTEIN 7.5 GM/DL (6.4-8.2)
[2017-12-01 12:27] LABS: ACETAMINOPHEN LESS THAN 2.0 MCG/ML (10.0-30.0); ALKALINE PHOSPHATASE 70 U/L (45-117); ALT (GPT) 13 U/L (10-53); AST (GOT) 28 U/L (15-37); BICARBONATE 24.7 MEQ/L (21.0-32.0); CALCIUM 8.6 MG/DL (8.5-10.1); CHLORIDE 111 MEQ/L (98-107); SODIUM (NA) 143 MEQ/L (136-145); TOTAL BILIRUBIN ADULT 0.4 MG/DL (0.2-1.0)
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
[2017-12-01] MEDS ORDERED: cefTRIAXone 250 MG VIAL IM ONE (14:45)
[2017-12-01] MEDS ORDERED: AZITHROMYCIN PWD FOR SUSP 1 GM PACKET PO ONE (14:45)
[2017-12-01] MEDS ORDERED: metroNIDAZOLE 500 MG TAB PO ONE (14:45)
[2017-12-01] MEDS ORDERED: ONDANSETRON ODT 4 MG TAB PO ONE (14:45)
[2017-12-01] MEDS ORDERED: LIDOCAINE HCL 1% 50 ML VIAL IM ONE (14:45)
[2017-12-01 15:35] VITALS: BP 122/82; PULSE 99; RESP 20; TEMP 97.9; O2SAT 96
[2017-12-01] MEDS ORDERED: LIDOCAINE HCL 1% PF 5 ML AMPULE OTHER ONE (15:45)
[2017-12-02 00:36] VITALS: RESP 18
--- NOTE | 2017-12-02 10:30 | PD ---
Physical Exam Time Seen by Provider: 10:28 Jose Reeder has evaluated patient, lifted the Bishop and cleared the patient for discharge. Data Data Last Documented VS Vital Signs Date Time Temp Pulse Resp B/P (MAP) Pulse Ox O2 Delivery O2 Flow Rate FiO2 12/02/17 00:36 18 12/01/17 15:35 97.9 99 96 Room Air Orders Orders Ed Urine Pregnancytest Poc (12/01/17 11:00) Lorazepam Inj (Ativan Inj) (12/01/17 11:15) Lorazepam Inj (Ativan Inj) (12/01/17 11:04) Complete Blood Count With Diff (12/01/17 11:04) Comprehensive Metabolic Panel (12/01/17 11:04) Thyroid Stimulating Hormone (12/01/17 11:04) Urinalysis - C+S If Indicated (12/01/17 11:04) Psych Screen (12/01/17 11:04) Drug Screen, Random Urine (12/01/17 11:04) Alcohol (Ethanol) (12/01/17 11:04) Salicylates (Aspirin) (12/01/17 11:04) Tylenol (Acetaminophen) (12/01/17 11:04) Restraints Violent (12/01/17 11:19) Ziprasidone Inj (Geodon Inj) (12/01/17 11:45) Diphenhydramine Inj (Benadryl Inj) (12/01/17 11:45) Wet Prep Profile (12/01/17 12:03) Gc And Chlamydia Pcr (12/01/17 12:03) Azithromycin Powd Pack (Zithromax Powd P (12/01/17 14:45) Ceftriaxone Inj (Rocephin Inj) (12/01/17 14:45) Lidocaine 1% Inj (50 Ml) (Xylocaine 1% I (12/01/17 14:45) Ondansetron Odt (Zofran Odt) (12/01/17 14:45) Metronidazole (Flagyl) (12/01/17 14:45) Lidocaine Pf 1% Inj (Xylocaine-Mpf 1% In (12/01/17 15:45) Diet Regular Basic (12/01/17 Dinner) Diet Regular Basic (12/02/17 Breakfast) Diet Regular Basic (12/02/17 Lunch) Labs Laboratory Tests Test 12/01/17 11:02 12/01/17 11:22 12/01/17 12:12 Urine Color YELLOW Urine Turbidity CLEAR Urine pH 6.0 Urine Specific [place] 1.022 Urine Protein TRACE mg/dL Urine Glucose (UA) NEG mg/dL Urine Ketones NEG mg/dL Urine Occult Blood NEG Urine Nitrite NEG Urine Bilirubin NEG Urine Urobilinogen 2.0 MG/DL Urine Leukocyte Esterase SMALL Urine RBC 2 /hpf Urine WBC 3 /hpf Urine Squamous Epithelial Cells 5 /hpf Urine Bacteria RARE /hpf Urine Mucus FEW /lpf Microscopic Urinalysis Comment CULT NOT INDICATED Urine Opiates Screen NEG Urine Barbiturates Screen NEG Urine Amphetamines Screen NEG Urine Benzodiazepines Screen NEG Urine Cocaine Screen NEG Urine Cannabinoids Screen NEG White Blood Count 5.0 TH/MM3 Red Blood Count 4.12 MIL/MM3 Hemoglobin 11.4 GM/DL Hematocrit 34.2 % Mean Corpuscular Volume 83.0 FL Mean Corpuscular Hemoglobin 27.8 PG Mean Corpuscular Hemoglobin Concent 33.4 % Red Cell Distribution Width 14.8 % Platelet Count 272 TH/MM3 Mean Platelet Volume 8.4 FL Neutrophils (%) (Auto) 38.0 % Lymphocytes (%) (Auto) 53.2 % Monocytes (%) (Auto) 7.0 % Eosinophils (%) (Auto) 1.5 % Basophils (%) (Auto) 0.3 % Neutrophils # (Auto) 1.9 TH/MM3 Lymphocytes # (Auto) 2.7 TH/MM3 Monocytes # (Auto) 0.4 TH/MM3 Eosinophils # (Auto) 0.1 TH/MM3 Basophils # (Auto) 0.0 TH/MM3 CBC Comment DIFF FINAL Differential Comment Blood Urea Nitrogen 12 MG/DL Creatinine 0.96 MG/DL Random Glucose 85 MG/DL Total Protein 7.5 GM/DL Albumin 3.7 GM/DL Calcium Level 8.6 MG/DL Alkaline Phosphatase 70 U/L Aspartate Amino Transf (AST/SGOT) 28 U/L Alanine Aminotransferase (ALT/SGPT) 13 U/L Total Bilirubin 0.4 MG/DL Sodium Level 143 MEQ/L Potassium Level 3.4 MEQ/L Chloride Level 111 MEQ/L Carbon Dioxide Level 24.7 MEQ/L Anion Gap 7 MEQ/L Estimat Glomerular Filtration Rate 86 ML/MIN Thyroid Stimulating Hormone 3rd Gen 1.730 uIU/ML Salicylates Level 1.7 MG/DL Acetaminophen Level LESS THAN 2.0 MCG/ML Ethyl Alcohol Level LESS THAN 3 MG/DL Clue Cells (Wet Prep) NONE SEEN Vaginal Trichomonas (Wet Prep) PRESENT Vaginal Yeast (Wet Prep) NONE SEEN Chlamydia trachomatis DNA (PCR) NOT DETECTED Neisseria gonorrhoeae DNA (PCR) NOT DETECTED MDM Supervised Visit with LEONOR: No Narrative Course CHEIKH Reeder has evaluated the patient, lifted the Bishop act and cleared the patient for discharge. Patient contracts safety. Denies suicidal or homicidal ideations. Patient will be provided community resource packet to [facility]/ [facility] for follow-up. Has friends and family for support. Patient was medically cleared by alternate provider prior to psych screening. Patient has been evaluated by psychiatry and and is now cleared for discharge. Diagnosis Primary Impression: Autism disorder Additional Impression: Trichomoniasis Referrals: [facility] (Out patient) [facility] Senior Media Director Primary Care Physician Psychiatrist [facility] Patient Instructions: Autism Spectrum Disorder (ED), General Instructions, Sexually Transmitted Diseases (ED), Trichomoniasis (ED) Additional Instruction: Avoid sexual activity for 14 days No sexual activity with your partner/s until they have been treated and waited 14 days Inform all sexual partners within the past 3-6 months that they need to be evaluated and treated Use condoms every time you have sex Follow-up with primary care provider Follow-up with artist blacksmith Return to the emergency department immediately with worsening of symptoms Contract safety to your self and others Follow-up with psychiatry Follow-up with primary care provider Follow-up with Jelani Nelson Return to the emergency department immediately with worsening of symptoms Med/Other Pt SpecificInfo: No Change to Meds, No Meds Exist/No RX given Disposition: 01 DISCHARGE HOME Condition: Stable JairLinh SALAMANCA December 02, 2017 10:30
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
== END 2017-12-02 11:35 | disposition home or self-care (01) ==
LOC: NEPJ 10:37
DX: F84.0 Autistic disorder (principal); A59.9 Trichomoniasis, unspecified; F79 Unspecified intellectual disabilities; E10.9 Type 1 diabetes mellitus without complications; Z88.2 Allergy status to sulfonamides; Z88.6 Allergy status to analgesic agent; Z79.899 Other long term (current) drug therapy
CPT/HCPCS: 80053; 80307; 81001; 84443; 84703; 85025; 87210; 87491; 87591; 96372; 99285; J0696; J1200; J2060; J3486